=== PATIENT | male | born 1960 | race Caucasian/White ===

== ENCOUNTER 2019-07-02 13:28 | Inpatient (IN) ==
[2019-07-02] MEDS ORDERED: SODIUM CHLORIDE 0.9% 500 ML IV SCH (14:00)
[2019-07-02 14:29] LABS: Basophils # (auto) 0.03 K/uL (0-0.2); Basophils % (auto) 0.2 %; Eosinophils # (auto) 0.03 K/uL (0-0.5); Eosinophils % (auto) 0.2 %; Hematocrit (blood only) 45.2 % (42-52); Hemoglobin 16.1 g/dL (14.0-18.0); Immature Granulocytes # (auto) 0.03 K/uL (0.00-0.02); Immature Granulocytes % (auto) 0.2 %; Lymphocytes # (auto) 1.24 K/uL (1.2-3.4); Lymphocytes % (auto) 6.8 %; Mean Corpuscular Hemoglobin 31.3 pg (25-34); Mean Corpuscular Hgb Conc 35.6 g/dL (32-36); Mean Corpuscular Volume 87.9 fL (80-100); Mean Platelet Volume 10.1 fL (7.4-10.4); Monocytes # (auto) 0.58 K/uL (0.11-0.59); Monocytes % (auto) 3.2 %; Neutrophils # (auto) 16.44 K/uL (1.4-6.5); Neutrophils % (auto) 89.4 %; Platelet Count 246 K/uL (130-400); RDW Coefficient of Variation 13.3 % (11.5-14.5); RDW Standard Deviation 42.7 fL (36.4-46.3); Red Blood Count 5.14 M/uL (4.7-6.1); White Blood Count 18.35 K/uL (4.8-10.8)
[2019-07-02 14:49] LABS: Albumin Level 3.8 gm/dl (3.4-5.0); BUN Creatinine Ratio 13.6 (10-20); Calcium 9.2 mg/dl (8.5-10.1); Creatinine Clr Calc Pharmacy 82.2 ml/min; Est GFR (African American) 66.1; Est GFR (Non-African American) 57.1; Potassium 4.3 mmol/L (3.5-5.1)
[2019-07-02 15:00] LABS: Albumin Globulin Ratio 0.7 (0.9-2); Bilirubin,Total 0.3 mg/dl (0.2-1); Globulin 5.1 gm/dl (2.5-4.0); Thyroid Stimulating Hormone 5.47 uIu/ml (0.300-4.500); Total Protein 8.9 gm/dl (6.4-8.2)
[2019-07-02 15:08] LABS: Acetaminophen < 2 ug/ml (10-30)
[2019-07-02 15:11] LABS: T4 Free Thyroxine 1.24 ng/dl (0.8-1.6)
[2019-07-02] MEDS ORDERED: ONDANSETRON INJ 2 MG/ML 2 ML VIAL IV STA (15:18)
[2019-07-02] MEDS ORDERED: SODIUM BICARBONATE 8.4% 150 MEQ in DEXTROSE 5% 1,000 ML IV SCH ×2 (15:30→18:00)
--- NOTE | 2019-07-02 16:16 | History & Physical Report ---
Date of Service July 02, 2019 Assessment & Plan (1) Suicide attempt by drug ingestion: (2) Aspirin overdose: (3) Overdose of metformin: This is a 58-year-old male who has significant past medical history of T2DM, HTN, HLD, hypothyroidism, depression who presents to [facility] after intentional overdose on ASA and metformin. Pt is believed to have taken 1/2 bottle of ASA (unknown if enteric coated) and approx 10 tabs of metformin Salicylate level 77 on admission WBC 18k, H/H stable at 16.1/45.2, Plt 246 BMP: Na 139, K 4.3, Chl 116, CO2 17, bun/cr 18/1.35, lactate 0.9, LFTS WNL Poison control contacted - recommend start bicarb gtt, repeat salicylate level at 4pm admit to PCU continue IVF with bicarb gtt 150meq @ 150cc/hr - titrate as necessary vbg, salicylate level, lactic acid, prp now and Q4h until peak suicide precautions/ 1:1 monitor closely for change in condition and hemodynamic stability (4) Diabetes: Last A1C 5.8 in 05/2019 no prior records to review as pt recently established with [facility] s/p overdose of metformin monitor for hypoglycemia, lactic acidosis treat elevated bsg with novolog per protocol (5) HTN (hypertension): blood pressure elevated in ED - likely in setting of OD Continue atenolol (6) HLD (hyperlipidemia): will hold statin tonight until repeat LFT in a.m. on atorvastatin (7) Hypothyroidism: continue levothyroxine TSH mildly elevated 5.47 TSH checked in outpt setting 05/2019 4.78 will need repeat as outpt in 4-6 weeks (8) Depression: continue zoloft psych consulted given intentional OD suicide precautions (9) History of TIA (transient ischemic attack): per [facility] records on ASA and statin as outpt (10) DVT prophylaxis: SCD/TEDS avoid chemical prophylaxis in setting of ASA overdose Disposition: admit to PCU Follow up: PCP Dr. Hong upon discharge Patient was seen and examined in collaboration with Dr. Zamora, please see addendum Starting 07/03/19 pt will be under the care of Dr. Vasquez History of Present Illness Chief Complaint: Intentional overdose with ASA and metformin. Primary Care Provider: Radha Yañez MD This is a 58-year-old male who has significant past medical history of T2DM, HTN, HLD, hypothyroidism, depression who presents to [facility] after intentional overdose on ASA and metformin. Patient states last evening his kicked him out, and he felt very depressed. Because of this he took approximately half a bottle of ASA 81 mg and 10 metformin. This occurred late last evening and through pan washer hand hours, patient unsure of exact timing. He woke up early this morning with significant nausea and vomiting, and because of that stopped taking excessive pills. He overall felt very sweaty, warm and became scared. Called asking to call EMS. Patient was brought to hospital via ambulance. Currently his nausea and vomiting has subsided but he continues to feel very sweaty and warm. Prior to intentional overdose he denies any recent illness, fever, chills, weakness, dizziness, syncope, chest pain, shortness of breath, palpitations, hemoptysis, abdominal pain, change in bowel or urinary habits. Prior to arrival he admits to intent of self-harm, but currently states "I was very stupid." Up until last evening he feels his depression has been otherwise controlled on Zoloft. He has a remote history of attempting overdose approximately 30 years ago on unknown substance. Currently he denies any suicidal or homicidal ideations. Allergies Allergy/AdvReac Type Severity Reaction Status Date / Time No Known Allergies Allergy Unverified 06/23/19 18:12 Home Medications Home Medications Medication Instructions Recorded Confirmed Type aspirin 81 mg PO DAILY 07/02/19 07/02/19 History atenolol 25 mg PO DAILY 07/02/19 07/02/19 History atorvastatin 40 mg PO HS 07/02/19 07/02/19 History levothyroxine 150 mcg PO DAILY 07/02/19 07/02/19 History metformin 500 mg PO BIDM 07/02/19 07/02/19 History sertraline 50 mg PO DAILY 07/02/19 07/02/19 History Past Med/Surg History Medical History History of TIA (transient ischemic attack) Depression Hypothyroidism HLD (hyperlipidemia) HTN (hypertension) Diabetes Surgical History History of hernia surgery Hx of eye surgery Family History Mother Dementia CHF (congestive heart failure) Father Diabetes Social History Preferred Language: Yoruba Communication Ability: Effective Communication Ability Comment: very hard of hearing Hearing Ability: Hard of Hearing Loading Checker Required: No Beliefs That Will Affect Care: None marital status: Current Living Situation: Spouse current occupational status: disabled Other Information That Helps Us Care for You: No Feels Safe at Home: Yes Safety Concerns: Feels Safe At This Time Smoking Status: Current every day smoker Tobacco Type: smokeless tobacco ; Hx Alcohol Use: No Hx Substance Use: Yes substance use type: other Substance Use Type Other:: overdose Last Used Substance: Just Prior to Arrival Review of Systems Review of Systems: All systems reviewed & are unremarkable except as noted in HPI & below Physical Exam Physical Exam: Constitutional: WD/WN, morbidly obese male, vey hard of hearing, diaphoretic, unkempt hygeine, vitals as above, NAD, sitting up in bed, pleasant, conversing easily Head: Normocephalic, Atraumatic Eyes: PERRL, conjunctivae normal, anicteric sclerae ENMT: external ear and nose normal, oropharynx with dry mucous membranes Neck: trachea midline, no thyromegaly normal visual inspection Respiratory: +tachypnea, lungs clear to auscultation, no wheeze, rales, rhonchi. Normal insp/exp effort, no accessory muscle use Cardiovascular: RRR, no murmur, no edema Vessels: no JVD or carotid bruit Chest: normal inspection of chest Abdomen: distended due to obesity, normal bowel sounds, soft, nontender, no hepatosplenomegaly Musculoskeletal: no cyanosis or clubbing, extremities motor strength 5/5 Skin: no rashes, warm and dry normal turgor, b/l pretibial surfaces with numerous abrasions, scratches but does not appear to be infected Neurologic: PERRL, EOMI, accommodation nl, no face palsy, no dysarthria CN's II-XI intact bilaterally and moves all extremities Psychiatric: A+Ox3, euthymic affect Lymphatic: no cervical or axillary lymphadenopathy : deferred Results & Data Vital Signs (Past 12 Hours) Vital Signs Temp Pulse Resp BP Pulse Ox 07/02/19 15:01 101 H 24 174/89 H 98 07/02/19 14:32 97 H 25 H 178/86 H 07/02/19 14:01 99 H 23 145/90 H 97 07/02/19 13:30 36.5 C 78 18 159/95 H 96 07/02/19 13:24 98 Laboratory Results Short CBC 07/02/19 Range/Units 14:12 WBC 18.35 H (4.8-10.8) K/uL Hgb 16.1 (14.0-18.0) g/dL Hct 45.2 (42-52) % Plt Count 246 (130-400) K/uL BMP 07/02/19 14:12 Sodium 139 Potassium 4.3 Chloride 116 H Carbon Dioxide 17 L BUN 18 Creatinine 1.35 Glucose 121 H Calcium 9.2 Cardiac Enzymes 07/02/19 Range/Units 14:12 Total Creatine Kinase 151 (39-308) U/L Liver Function 07/02/19 Range/Units 14:12 Total Bilirubin 0.3 (0.2-1) mg/dl AST 23 (15-37) U/L ALT 35 (12-78) U/L Alkaline Phosphatase 88 (45-117) U/L Albumin 3.8 (3.4-5.0) gm/dl Medications Administered Sodium Bicarbonate 150 meq/ (Dextrose) 1,150 mls @ 250 mls/hr IV .Q4H36M CAITY Stop: 07/02/19 20:05 Last Admin: 07/02/19 15:48 Dose: 250 mls/hr Documented by: [id number] Discontinued Medications Sodium Chloride (Nss) 500 mls @ 999 mls/hr IV .Q31M CAITY Stop: 07/02/19 14:30 Last Infusion: 07/02/19 14:55 Dose: 0 mls/hr Documented by: [id number] Admin: 07/02/19 14:19 Dose: 999 mls/hr Documented by: [id number] Ondansetron HCl (Zofran) 4 mg IV NOW STA Stop: 07/02/19 15:19 Last Admin: 07/02/19 15:48 Dose: 4 mg Documented by: [id number] ECG Rate (beats per minute): 94 Rhythm: normal sinus Code Status & VTE Plan Code Status Full Code VTE Prophylaxis Plan VTE Prophylaxis will be ordered: Yes Supervising Physician Co-Signing Physician Notes I have seen and examined the patient and have discussed the case with the provider above. I agree with the assessment and plan as stated with the following exceptions. 58 yo intentional overdose in a suicide attempt reports taking half of a "big bottle of aspirin" overnight and into this morning after his kicked him out after an argument. He reports being on disability and not able to afford any of his medications consistently. He denies taking Synthroid for a "very long time." He denies taking sertraline at all, and thinks that this is the only agent he has been treated with in the last two years since starting treatment for depression, however, he is a very poor historian. It appears unlikely that he takes any medications at all. He feels "stupid" for what he did and exhibits remorse. He appears happy when talking about his baby cat that he has at home. He says he has a neutral friend he can stay with in the meantime until things calm down with his . Regarding his acid base issues related to salicylate toxicity, he has a respiratory alkalosis 2/2 tachypnea and a metabolic acidosis with a normal anion gap and normal lactate. Nausea and vomiting has subsided. Physical exam reveals tachycardia with a regular rate and rhythm, lungs clear to auscultation bilaterally, he has multiple small cat scratches on his abdomen, skin is warm and dry. His salicylate level has risen over the past 6 hours since admission. Poison control is guiding therapy to include bicarb drip with 3 amps HC03 and the addition of KCl30 Meq. Frequent lab draws are requested including q2hr salicylates, q4h blood gases and another lactate to ensure this is not rising. I have also added q4h BMP. As a result of this need, the rising salicylate level, and his persistent hemodynamic instability we will transfer him to the ICU. I have discussed the case with the [facility] who does not feel urgent dialysis is needed at this time. It is noted that emergent dialysis is not currently available at this facility by all providers. DO Noah (1) Aspirin overdose Encounter type: initial encounter Injury intent: intentional self-harm Qualified Code(s): T39.012A - Poisoning by aspirin, intentional self-harm, initial encounter (2) HTN (hypertension) Hypertension type: unspecified Qualified Code(s): I10 - Essential (primary) hypertension
[2019-07-02 16:47] LABS: Oxygen Saturation VBG 88.6 %; pH VBG 7.49 (7.36-7.41)
[2019-07-02 16:59] LABS: Calcium 8.8 mg/dl (8.5-10.1); Creatinine Clr Calc Pharmacy 86.7 ml/min; Est GFR (African American) 70.5; Est GFR (Non-African American) 60.9; Potassium 4.1 mmol/L (3.5-5.1)
[2019-07-02] MEDS ORDERED: POLYETHYLENE (MIRALAX) 17 GM PACK PO PRN (17:17)
[2019-07-02] MEDS ORDERED: GLUCAGON FOR INJ 1 MG VIAL SQ PRN (17:17)
[2019-07-02] MEDS ORDERED: ONDANSETRON INJ 2 MG/ML 2 ML VIAL IV PRN (17:17)
[2019-07-02] MEDS ORDERED: GLUCOSE 10 TABS/TUBE PO PRN (17:17)
[2019-07-02] MEDS ORDERED: MAGNESIUM HYDROXIDE SUSP 30 ML UDC PO PRN (17:17)
[2019-07-02] MEDS ORDERED: DEXTROSE 50% 50 ML SYRINGE IV PRN (17:17)
[2019-07-02] MEDS ORDERED: ALUMINUM/MAGNESIUM SUSP 30 ML UDC PO PRN (17:17)
[2019-07-02] MEDS ORDERED: CARBOHYDRATES FOR HYPOGLYCEMIA PO PRN (17:17)
[2019-07-02] MEDS ORDERED: GLUCOSE 40% GEL 15 GM TUBE PO PRN (17:17)
[2019-07-02] MEDS ORDERED: ACETAMINOPHEN 325 MG TAB PO PRN (17:17)
[2019-07-02] MEDS ORDERED: NICOTINE 14 MG/24 HR PATCH TD SCH (17:45)
[2019-07-02 19:12] LABS: Base Excess ABG -2.6 mEq/L (-9-1.8); HCO3 ABG 18 mmol/L (19-24); Oxygen Saturation ABG 97.9 % (90-95); PCO2 ABG 22 mmHg (35-46); PO2 ABG 92 mm/Hg (80-95)
[2019-07-02 19:17] LABS: Allen Test Pos (Pos); pH ABG 7.53 (7.35-7.45)
--- NOTE | 2019-07-02 20:36 | Emergency Department Note ---
Entered by Yulsia Newton acting as a scribe for Doc Reyes M.D. History of Present Illness General Chief complaint: Overdose (Intentional) Stated complaint: drug overdose Source: patient History of Present Illness Onset (ago): day(s) (this morning) Location: abdomen Pain Consistency: + other (episode) Quality: + other (overdose) Associated symptoms: + denies other symptoms (recent falls), + nausea/vomiting, + shortness of breath and + other (abdominal pain, SI, chronic ear ringing) The patient is a 58 year old male who presents to the Emergency Room with complaints of an episode of an overdose occurring this morning. The patient states that last night him and his of 15 years got into an argument. He reports that she asked him to leave the house and he did so early this morning. He states that he just couldnt handle it so he tried to overdose on his medications. He states that he took 10 tablets of 500 mg Metformin and about half a large bottle of Aspirin. He reports that he believes that there were 100 Aspirin in the bottle and he took roughly 50. He notes that he started taking the medications around 5 AM, 9 hours ago. He states that since then he started having a burning abdominal pain, nausea, and vomiting. He reports that he then called 911. He notes that he was trying to kill himself this morning. He notes that he tried once before 30 years ago. The patient complains of chronic ringing in his ears and shortness of breath. The patient denies recent falls, use of drugs, and drinking alcohol. Home Medications Home Medications Medication Instructions Recorded Confirmed Type aspirin 81 mg PO DAILY 07/02/19 07/02/19 History atenolol 25 mg PO DAILY 07/02/19 07/02/19 History atorvastatin 40 mg PO HS 07/02/19 07/02/19 History levothyroxine 150 mcg PO DAILY 07/02/19 07/02/19 History metformin 500 mg PO BIDM 07/02/19 07/02/19 History sertraline 50 mg PO DAILY 07/02/19 07/02/19 History Allergies Allergy/AdvReac Type Severity Reaction Status Date / Time No Known Allergies Allergy Unverified 06/23/19 18:12 Past Med/Surg History Medical History History of TIA (transient ischemic attack) Depression Hypothyroidism HLD (hyperlipidemia) HTN (hypertension) Diabetes Surgical History History of hernia surgery Hx of eye surgery Family History Mother Dementia CHF (congestive heart failure) Father Diabetes Social History Preferred Language: Tristanian Communication Ability: Effective Communication Ability Comment: very hard of hearing Hearing Ability: Hard of Hearing Cordwainer Required: No Beliefs That Will Affect Care: None marital status: Current Living Situation: Spouse current occupational status: disabled Other Information That Helps Us Care for You: No Feels Safe at Home: Yes Safety Concerns: Feels Safe At This Time Smoking Status: Current every day smoker Tobacco Type: smokeless tobacco ; Hx Alcohol Use: No Hx Substance Use: Yes substance use type: other Substance Use Type Other:: overdose Last Used Substance: Just Prior to Arrival Review of Systems See HPI for pertinent positives & negatives. and A total of 10 systems reviewed and were otherwise negative Physical Exam Vital Signs Vital Signs - 24 hr 07/02/19 13:24 07/02/19 13:30 07/02/19 14:01 Temperature 36.5 C Temperature Source Oral Sepsis Recent Fever Within 48 Hours No Sepsis New/Unexplained Change in Mental Status No Sepsis Action Taken by Nursing No Action Required Pulse Rate 78 99 H Pulse Rate from SpO2 Sensor 98 H Respiratory Rate 18 23 Respiratory Effort / Characteristics Non-Labored Spontaneous Respiratory Depth Normal Respiratory Pattern Regular Blood Pressure 159/95 H 145/90 H Blood Pressure Mean 116 108 Pulse Oximetry 98 96 97 Oxygen Delivery Method Room Air Room Air 07/02/19 14:32 07/02/19 15:01 Temperature Temperature Source Sepsis Recent Fever Within 48 Hours Sepsis New/Unexplained Change in Mental Status Sepsis Action Taken by Nursing Pulse Rate 97 H 101 H Pulse Rate from SpO2 Sensor 100 H Respiratory Rate 25 H 24 Respiratory Effort / Characteristics Respiratory Depth Respiratory Pattern Blood Pressure 178/86 H 174/89 H Blood Pressure Mean 116 117 Pulse Oximetry 98 Oxygen Delivery Method GENERAL: Tearful. Awake, alert, fatigue appearing HENT: Normocephalic, atraumatic. EYES: Normal conjunctiva. Sclera non-icteric. NECK: Supple. No nuchal rigidity. RESPIRATORY: Tachypneic. Clear to auscultation. No wheezes. CARDIAC: Normal rate. Normal rhythm. Extremities warm and well perfused. GI: Soft, non-distended. No tenderness to palpation. No rebound or guarding. No masses. RECTAL: Deferred. MUSCULOSKELETAL: Atraumatic. Chest examination reveals no tenderness. LOWER EXTREMITIES: Calves are equal size bilaterally and non-tender. No edema NEURO: Normal sensorium. No sensory or motor deficits noted. No facial droop. SKIN: Warm and dry. No rash or jaundice noted. PSYCH: Endorse thoughts of SI. Denies HI. Course 1400: Past medical records reviewed. The patient was evaluated in room A3. A complete history and physical exam was performed. 1511: I discussed the patient's case with Poison Control. They recommended starting a Bicarb drip and repeating his labs in 2 hours. 1516: I reevaluated the patient and updated him on his test results. I discussed the treatment plan with him. He verbally agrees and understands. 1519: I discussed the patient's case with ELSY Cotto [facility]. She will evaluate the patient for further management under Dr. Zamora's service. 1522: The psych case folder, Deonte, is going to write a petition for the patient given his suicidal thoughts. Administered Medications Al Hydrox/Mg Hydrox/Simethicone (Maalox) 15 ml PO Q4H PRN PRN Reason: Dyspepsia Stop: 08/01/19 17:16 Last Admin: 07/02/19 19:41 Dose: 15 ml Documented by: [id number] Discontinued Medications Sodium Chloride (Nss) 500 mls @ 999 mls/hr IV .Q31M CAITY Stop: 07/02/19 14:30 Last Infusion: 07/02/19 14:55 Dose: 0 mls/hr Documented by: [id number] Admin: 07/02/19 14:19 Dose: 999 mls/hr Documented by: [id number] Sodium Bicarbonate 150 meq/ (Dextrose) 1,150 mls @ 250 mls/hr IV .Q4H36M CAITY Stop: 07/02/19 20:05 Last Admin: 07/02/19 15:48 Dose: 250 mls/hr Documented by: [id number] Sodium Bicarbonate 150 meq/ (Dextrose) 1,150 mls @ 150 mls/hr IV .Q7H40M [facility] Stop: 08/01/19 17:59 Last Admin: 07/02/19 19:42 Dose: 150 mls/hr Documented by: [id number] Ondansetron HCl (Zofran) 4 mg IV NOW STA Stop: 07/02/19 15:19 Last Admin: 07/02/19 15:48 Dose: 4 mg Documented by: [id number] Medical Decision Making Differential Diagnosis Differential diagnosis: Etiologies such as toxicological process, infection, hypoglycemia, electrolyte abnormalities, cardiac sources, intracerebral event, neurologic process, as well as others were entertained. Medical Records Attestation: I reviewed the patient's medical records. Home Medications Current Medication List: was personally reviewed by me Laboratory Data Attestation: I reviewed the patient's lab results. Result diagrams: 07/02/19 14:12 07/02/19 16:34 Lab Results 07/02/19 07/02/19 07/02/19 Range/Units 14:12 14:12 14:12 WBC 18.35 H (4.8-10.8) K/uL RBC 5.14 (4.7-6.1) M/uL Hgb 16.1 (14.0-18.0) g/dL Hct 45.2 (42-52) % MCV 87.9 (80-100) fL MCH 31.3 (25-34) pg MCHC 35.6 (32-36) g/dL RDW Std Deviation 42.7 (36.4-46.3) fL RDW Coeff of Enedelia 13.3 (11.5-14.5) % Plt Count 246 (130-400) K/uL MPV 10.1 (7.4-10.4) fL Immature Gran % (Auto) 0.2 % Neut % (Auto) 89.4 % Lymph % (Auto) 6.8 % Fajardo % (Auto) 3.2 % Eos % (Auto) 0.2 % Baso % (Auto) 0.2 % Immature Gran # (Auto) 0.03 H (0.00-0.02) K/uL Neut # (Auto) 16.44 H (1.4-6.5) K/uL Lymph # (Auto) 1.24 (1.2-3.4) K/uL Fajardo # (Auto) 0.58 (0.11-0.59) K/uL Eos # (Auto) 0.03 (0-0.5) K/uL Baso # (Auto) 0.03 (0-0.2) K/uL Sodium (136-145) mmol/L Potassium (3.5-5.1) mmol/L Chloride (98-107) mmol/L Carbon Dioxide (21-32) mmol/L Anion Gap (3-11) BUN (7-18) mg/dl Creatinine (0.6-1.4) mg/dl Est Cr Clr Drug Dosing ml/min Est GFR ( Amer) Est GFR (Non-Af Amer) BUN/Creatinine Ratio (10-20) Glucose (70-99) mg/dl Lactate 0.9 (0.4-2.0) mmol/L Calcium (8.5-10.1) mg/dl Total Bilirubin (0.2-1) mg/dl AST (15-37) U/L ALT (12-78) U/L Alkaline Phosphatase (45-117) U/L Total Creatine Kinase 151 (39-308) U/L Total Protein (6.4-8.2) gm/dl Albumin (3.4-5.0) gm/dl Globulin (2.5-4.0) gm/dl Albumin/Globulin Ratio (0.9-2) Lipase (73-393) U/L TSH (0.300-4.500) uIu/ml Free T4 (0.8-1.6) ng/dl Salicylates (2.8-20) mg/dl Acetaminophen (10-30) ug/ml Ethyl Alcohol mg/dL (0-3) mg/dl Hepatitis C Ab Screen (Neg) 07/02/19 07/02/19 07/02/19 Range/Units 14:12 14:12 14:12 WBC (4.8-10.8) K/uL RBC (4.7-6.1) M/uL Hgb (14.0-18.0) g/dL Hct (42-52) % MCV (80-100) fL MCH (25-34) pg MCHC (32-36) g/dL RDW Std Deviation (36.4-46.3) fL RDW Coeff of Enedelia (11.5-14.5) % Plt Count (130-400) K/uL MPV (7.4-10.4) fL Immature Gran % (Auto) % Neut % (Auto) % Lymph % (Auto) % Fajardo % (Auto) % Eos % (Auto) % Baso % (Auto) % Immature Gran # (Auto) (0.00-0.02) K/uL Neut # (Auto) (1.4-6.5) K/uL Lymph # (Auto) (1.2-3.4) K/uL Fajardo # (Auto) (0.11-0.59) K/uL Eos # (Auto) (0-0.5) K/uL Baso # (Auto) (0-0.2) K/uL Sodium 139 (136-145) mmol/L Potassium 4.3 (3.5-5.1) mmol/L Chloride 116 H (98-107) mmol/L Carbon Dioxide 17 L (21-32) mmol/L Anion Gap 6.0 (3-11) BUN 18 (7-18) mg/dl Creatinine 1.35 (0.6-1.4) mg/dl Est Cr Clr Drug Dosing 82.2 ml/min Est GFR ( Amer) 66.1 Est GFR (Non-Af Amer) 57.1 BUN/Creatinine Ratio 13.6 (10-20) Glucose 121 H (70-99) mg/dl Lactate (0.4-2.0) mmol/L Calcium 9.2 (8.5-10.1) mg/dl Total Bilirubin 0.3 (0.2-1) mg/dl AST 23 (15-37) U/L ALT 35 (12-78) U/L Alkaline Phosphatase 88 (45-117) U/L Total Creatine Kinase (39-308) U/L Total Protein 8.9 H (6.4-8.2) gm/dl Albumin 3.8 (3.4-5.0) gm/dl Globulin 5.1 H (2.5-4.0) gm/dl Albumin/Globulin Ratio 0.7 L (0.9-2) Lipase (73-393) U/L TSH 5.470 H (0.300-4.500) uIu/ml Free T4 1.24 (0.8-1.6) ng/dl Salicylates 77.0 H* (2.8-20) mg/dl Acetaminophen < 2 L (10-30) ug/ml Ethyl Alcohol mg/dL < 3.0 (0-3) mg/dl Hepatitis C Ab Screen (Neg) 07/02/19 07/02/19 Range/Units 14:12 14:12 WBC (4.8-10.8) K/uL RBC (4.7-6.1) M/uL Hgb (14.0-18.0) g/dL Hct (42-52) % MCV (80-100) fL MCH (25-34) pg MCHC (32-36) g/dL RDW Std Deviation (36.4-46.3) fL RDW Coeff of Enedelia (11.5-14.5) % Plt Count (130-400) K/uL MPV (7.4-10.4) fL Immature Gran % (Auto) % Neut % (Auto) % Lymph % (Auto) % Fajardo % (Auto) % Eos % (Auto) % Baso % (Auto) % Immature Gran # (Auto) (0.00-0.02) K/uL Neut # (Auto) (1.4-6.5) K/uL Lymph # (Auto) (1.2-3.4) K/uL Fajardo # (Auto) (0.11-0.59) K/uL Eos # (Auto) (0-0.5) K/uL Baso # (Auto) (0-0.2) K/uL Sodium (136-145) mmol/L Potassium (3.5-5.1) mmol/L Chloride (98-107) mmol/L Carbon Dioxide (21-32) mmol/L Anion Gap (3-11) BUN (7-18) mg/dl Creatinine (0.6-1.4) mg/dl Est Cr Clr Drug Dosing ml/min Est GFR ( Amer) Est GFR (Non-Af Amer) BUN/Creatinine Ratio (10-20) Glucose (70-99) mg/dl Lactate (0.4-2.0) mmol/L Calcium (8.5-10.1) mg/dl Total Bilirubin (0.2-1) mg/dl AST (15-37) U/L ALT (12-78) U/L Alkaline Phosphatase (45-117) U/L Total Creatine Kinase (39-308) U/L Total Protein (6.4-8.2) gm/dl Albumin (3.4-5.0) gm/dl Globulin (2.5-4.0) gm/dl Albumin/Globulin Ratio (0.9-2) Lipase 107 (73-393) U/L TSH (0.300-4.500) uIu/ml Free T4 (0.8-1.6) ng/dl Salicylates (2.8-20) mg/dl Acetaminophen (10-30) ug/ml Ethyl Alcohol mg/dL (0-3) mg/dl Hepatitis C Ab Screen Neg (Neg) ECG Data Attestation: I personally reviewed and interpreted this ECG as follows: Indication: toxicologic Rate (beats per minute): 94 Rhythm: normal sinus Findings: + other (normal intervals); no PVC, no ST depression, no ST elevation and no acute ischemic change Blood Pressure Blood Pressure Findings: Elevated blood pressure Blood Pressure Disposition: further management by hospitalist RADHA Castelan Patient is a 58-year-old gentleman with a history of hypertension and diabetes presenting today after going to his fight with his last night and trying to overdose this morning. States after 5 AM this morning he took half a bottle of aspirin and 10 tablets of metformin. Unable to give me exact timeline. Patient somewhat tachypneic and complaining of chronic tinnitus upon valuation in the room. Complains of nausea and upper abdominal discomfort and states he has vomited. No clonus. No fevers. No other sick external signs of significant trauma. Not peritoneal. Toxicology labs were sent and EKG obtained. No evidence of significant electrolyte abnormalities. Leukocytosis of 18.3 as noted. No evidence of interval abnormalities on EKG. no lactate elevation. No evidence of liver dysfunction Tylenol or alcohol intoxication. Aspirin level of 77. Fits with his tachypnea and overdose profile. Started on bicarb drip. Discussed with poison control. Will admit medically for aspirin overdose. Will need psychiatric evaluation as well. Discussed with the [facility] hospitalist. Impression & Plan Aspirin overdose, Overdose of metformin, Suicidal thoughts, Nausea Discharge Plan Visit Data *Final* Discharge Date/Time: 07/02/19 16:45 Chief Complaint: Overdose (Intentional) Stated Complaint: drug overdose ED Provider: Doc Reyes Discharge Problem: Aspirin overdose, Overdose of metformin, Suicidal thoughts, Nausea Patient Disposition: Admitted As Inpatient Discharge Instructions Interventions: ED Discharge Assessment Last Done: 07/02/19 16:45 Discharge Problem: Aspirin overdose Qualifiers: Encounter type: initial encounter Injury intent: intentional self-harm Qualified Code(s): T39.012A - Poisoning by aspirin, intentional self-harm, initial encounter The scribe's documentation has been prepared under my direction and personally reviewed by me in its entirety. I confirm that the note above accurately reflects all work, treatment, procedures, and medical decision making performed by me.
[2019-07-02] MEDS: SODIUM BICARBONATE 8.4% 150 MEQ, POTASSIUM CHLORIDE 30 MEQ in DEXTROSE 5% 1,000 ML IV SCH (21:08)
[2019-07-02 21:12] LABS: Appearance Urine Clear (Clear); Bacteria Urine Automated Negative (Negative); Bilirubin Urine Negative (Negative); Blood Urine Negative (Negative); Color Urine Yellow; Epithelial Cell Urine Auto >30 /lpf (0-5); Glucose Urine UA Trace (Negative); Ketones Urine 2+ (Negative); Leukocyte Esterase Urine Negative (Negative); Nitrite Urine Negative (Negative); Protein Urine 1+ (Negative); RBC Urine Automated 0-4 /hpf (0-4); Specific Gravity Urine 1.022 (1.000-1.030); Urobilinogen Urine Negative (Negative)
[2019-07-02 21:20] LABS: Amphetamines+Metham, Urine Neg (Neg); Barbiturates, Urine Neg (Neg); Benzodiazepine, Urine Neg (Neg); Cocaine, Urine Neg (Neg); MDMA (Ecstacy), Urine Neg (Neg); Methadone, Urine Neg (Neg); Opiate, Urine Neg (Neg); Phencyclidine, Urine Neg (Neg)
--- NOTE | 2019-07-02 21:36 | Critical Care Consultation ---
Date of Consultation July 02, 2019 Assessment & Plan (1) Suicide attempt by drug ingestion: Reason Critically Ill: 58-year-old male admitted to the ICU following intentional OD with ASA and metformin Neuro - Suicide attempts with overdosepatient reported taking a half bottle of ASA and 10 tablets of metformin earlier today and attempt to commit suicide, currently denies suicidal ideation but is confused -We will need psych consult once metabolically stable, continue one-on-one sitter, suicidal precautions -Toxicology following and appreciate recommendations -We will continue bicarb drip with potassium additive, toxicology recommended allowing pH to reach as high as 7.60 -Q4H EKGs for QTc analysis -Q2H salicylates and VBG -Lactic acidosis so far negative, continue to monitor -Frequent BMPs, closely monitoring bicarb level -Goal urine output 1 to 2 mL/kg/h, given LR bolus, monitor urine pH routine -Nephrology did not recommend dialysis at this time, understand the patient is low threshold and closely monitoring with labs -Continuous monitoring on telemetry -Frequent neuro exams Cardiac - HTNresume home meds when appropriate Respiratory - Patient maintaining sats on room air, no issues at this time GI - N.p.o., advance diet when appropriate RENAL/LYTES - Monitor routine BMPs, replete electrolytes as necessary Continue D5W HCO3 drip with 30 mEq K - Trevino, strict I's and O's for goal urine output 1 to 2 mL/kg/h ENDO - DM type IIhemoglobin A1c 5.7, no metformin given overdose -Currently euglycemic, ICU hyperglycemic protocol Hypothyroidismcontinue Synthroid HEME - H&H stable, monitor routine CBCs ID - No indication for infectious process at this time LINES/IV ACCESS - Peripheral IVs DVT PROPHYLAXIS - SCDs I have personally spent 60 minutes of critical care time in the direct management of this patient. This is a life/limb threatening event. This includes time spent evaluating patient, direct bedside care, chart review, placing orders, interpretation of diagnostic studies, discussion with consultants, patient, and family members, as well as other required patient management activities. This time is exclusive of all separately billable procedures, and teaching time and separate from and in addition to any other critical care service time. Thank you for allowing us to participate in the care of this patient. Please refer to my attending physician's documentation for any further recommendations. (2) Depression: (3) Hypothyroidism: (4) HLD (hyperlipidemia): (5) Aspirin overdose: (6) Overdose of metformin: (7) HTN (hypertension): (8) Diabetes: History of Present Illness Attending Physician: Naya Zamora DO History of Present Illness Patient is a 58-year-old male with past medical history of DM type II, HTN, HLD, hypothyroidism, depression who presented to the emergency department with intentional overdose with approximately half bottle ASA and 10 tabs metformin. Patient was initially admitted to PCU, initial salicylate level 77 had increased to 83. The patient also become more confused and was transferred to ICU for closer monitoring and management. Per my conversation with the hospitalist, nephrology was notified and at this point and did not recommend dialysis. Per toxicology recommendations the patient had been placed on bicarb drip and was being monitored with frequent VBGs, lactates, BMPs, salicylate levels, EKGs. On arrival to the ICU the patient was alerts with confusion about place and time. He admitted to attempting to commit suicide but did not remember how and denied current suicidal ideations. He currently has a one-on-one sitter at bedside. He denies dizziness or lightheadedness, headache, shortness of breath, palpitations, chest pain, abdominal pain, nausea or vomiting, or diarrhea. Patient to remain in ICU for now for current management, will likely be low threshold for need for emergent dialysis if patient's status deteriorates. Allergies Allergy/AdvReac Type Severity Reaction Status Date / Time No Known Allergies Allergy Unverified 06/23/19 18:12 Home Medications Home Medications Medication Instructions Recorded Confirmed Type aspirin 81 mg PO DAILY 07/02/19 07/02/19 History atenolol 25 mg PO DAILY 07/02/19 07/02/19 History atorvastatin 40 mg PO HS 07/02/19 07/02/19 History levothyroxine 150 mcg PO DAILY 07/02/19 07/02/19 History metformin 500 mg PO BIDM 07/02/19 07/02/19 History sertraline 50 mg PO DAILY 07/02/19 07/02/19 History Patient History Medical History History of TIA (transient ischemic attack) Depression Hypothyroidism HLD (hyperlipidemia) HTN (hypertension) Diabetes Surgical History History of hernia surgery Hx of eye surgery Family History Mother Dementia CHF (congestive heart failure) Father Diabetes Social History Preferred Language: Hungarian Communication Ability: Effective Communication Ability Comment: very hard of hearing Hearing Ability: 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 Beliefs That Will Affect Care: None marital status: Current Living Situation: Spouse current occupational status: disabled Other Information That Helps Us Care for You: No Feels Safe at Home: Yes Safety Concerns: Feels Safe At This Time Smoking Status: Current every day smoker Tobacco Type: smokeless tobacco ; Hx Alcohol Use: No Hx Substance Use: Yes substance use type: other Substance Use Type Other:: overdose Last Used Substance: Just Prior to Arrival Review of Systems Review of Systems: All systems reviewed & are unremarkable except as noted in HPI & below Physical Exam Constitutional: cooperative and comfortable Eyes: PERRL ENMT: external ear and nose normal, oropharynx normal Neck: trachea midline, no thyromegaly Respiratory: normal respiratory effort, lungs clear to auscultation + tachypneic Cardiovascular: RRR, no murmur, no edema Heart Sounds: normal S1 and normal S2 Vessels: no JVD Extremities: normal capillary refill Gastrointestinal (Abdomen): normal bowel sounds, soft, nontender, no hepatosplenomegaly Musculoskeletal: no cyanosis or clubbing, extremities motor strength 5/5 Skin: no rashes, warm and dry Neurologic: PERRL, EOMI, accommodation nl, no face palsy, no dysarthria Psychiatric: Orientation: alert, oriented to person and cooperative Eye Contact: good eye contact Speech: normal rate/rhythm/volume of speech Affect: euthymic affect Cognition: + recent memory not intact confused Results & Data Vital Signs (Past 12 Hours) Vital Signs Temp Pulse Pulse Resp BP BP Pulse Ox 07/02/19 21:15 118 H 17 99 07/02/19 21:10 120 H 25 H 97 07/02/19 21:06 36.6 C 121 H 25 H 141/80 H 97 07/02/19 21:05 121 H 18 97 07/02/19 21:03 120 H 25 H 07/02/19 20:50 120 H 07/02/19 19:34 36.3 C L 110 H 28 H 172/90 H 98 07/02/19 17:17 36.5 C 110 H 26 H 98 07/02/19 16:45 74 18 164/96 H 99 07/02/19 16:02 111 H 23 164/96 H 96 07/02/19 16:00 110 H 23 130/89 96 07/02/19 15:01 101 H 24 174/89 H 98 07/02/19 14:32 97 H 25 H 178/86 H 07/02/19 14:01 99 H 23 145/90 H 97 07/02/19 13:30 36.5 C 78 18 159/95 H 96 07/02/19 13:24 98 Coding Level of Care Code Critical Care 1st 30-74 mins Diagnoses Suicide attempt by drug ingestion T50.902A Depression F32.9 Hypothyroidism E03.9 HLD (hyperlipidemia) E78.5 Aspirin overdose T39.012A Encounter type: initial encounter Injury intent: intentional self-harm Overdose of metformin T38.3X1A HTN (hypertension) I10 Diabetes E11.9 Time Spent (min) 60 (1) Aspirin overdose Encounter type: initial encounter Injury intent: intentional self-harm Qualified Code(s): T39.012A - Poisoning by aspirin, intentional self-harm, initial encounter
[2019-07-02 22:08] LABS: Base Excess VBG -1.7 mEq/L; Oxygen Saturation VBG 95.2 %; pH VBG 7.54 (7.36-7.41)
[2019-07-02] MEDS ORDERED: ICU PROTOCOL FOR HYPERGLYCEMIA PRN (22:12)
[2019-07-02 22:22] LABS: BUN Creatinine Ratio 15.3 (10-20); Calcium 8.3 mg/dl (8.5-10.1); Est GFR (Non-African American) 56.1; Potassium 3.6 mmol/L (3.5-5.1)
[2019-07-03] MEDS ORDERED: LACTATED RINGER'S 1,000 ML IV ONE ×2 (00:06→01:43)
[2019-07-03 00:11] LABS: Base Excess VBG 2.5 mEq/L; Oxygen Saturation VBG 94.4 %; pH VBG 7.6 (7.36-7.41)
[2019-07-03 01:20] LABS: Base Excess VBG 4.1 mEq/L; HCO3 VBG 26 mmol/L; PCO2 VBG 31 mmHg (38-50); PO2 VBG 25 mmHg; pH VBG 7.54 (7.36-7.41)
[2019-07-03 01:25] LABS: Oxygen Saturation VBG < 60.0 %
[2019-07-03 01:30] LABS: BUN Creatinine Ratio 14.3 (10-20); Creatinine Clr Calc Pharmacy 78.2 ml/min; Est GFR (African American) 62.2; Est GFR (Non-African American) 53.7; Potassium 3.5 mmol/L (3.5-5.1)
[2019-07-03] MEDS: LACTATED RINGER'S 1,000 ML IV SCH ×2 (03:20→11:09)
[2019-07-03] MEDS: SODIUM BICARBONATE 8.4% 150 MEQ, POTASSIUM CHLORIDE 30 MEQ in DEXTROSE 5% 1,000 ML IV SCH ×2 (03:21→12:08)
[2019-07-03 03:27] LABS: Base Excess VBG 3.8 mEq/L; pH VBG 7.56 (7.36-7.41)
[2019-07-03 05:33] LABS: Basophils # (auto) 0.02 K/uL (0-0.2); Basophils % (auto) 0.1 %; Eosinophils # (auto) 0.02 K/uL (0-0.5); Eosinophils % (auto) 0.1 %; Hematocrit (blood only) 39.3 % (42-52); Hemoglobin 13.5 g/dL (14.0-18.0); Immature Granulocytes # (auto) 0.04 K/uL (0.00-0.02); Immature Granulocytes % (auto) 0.3 %; Lymphocytes # (auto) 2.06 K/uL (1.2-3.4); Lymphocytes % (auto) 13.3 %; Mean Corpuscular Hemoglobin 30.5 pg (25-34); Mean Corpuscular Hgb Conc 34.4 g/dL (32-36); Mean Corpuscular Volume 88.9 fL (80-100); Mean Platelet Volume 10.4 fL (7.4-10.4); Monocytes # (auto) 1.15 K/uL (0.11-0.59); Monocytes % (auto) 7.4 %; Neutrophils # (auto) 12.16 K/uL (1.4-6.5); Neutrophils % (auto) 78.8 %; Platelet Count 232 K/uL (130-400); RDW Coefficient of Variation 13.9 % (11.5-14.5); RDW Standard Deviation 45.2 fL (36.4-46.3); Red Blood Count 4.42 M/uL (4.7-6.1); White Blood Count 15.45 K/uL (4.8-10.8)
[2019-07-03 05:40] LABS: Base Excess VBG 1.5 mEq/L; Oxygen Saturation VBG 89.9 %; pH VBG 7.53 (7.36-7.41)
[2019-07-03 06:06] LABS: Albumin Level 2.9 gm/dl (3.4-5.0); BUN Creatinine Ratio 14.6 (10-20); Calcium 7.8 mg/dl (8.5-10.1); Est GFR (Non-African American) 56.1; Magnesium 2.2 mg/dl (1.8-2.4); Potassium 3.3 mmol/L (3.5-5.1)
[2019-07-03] MEDS ORDERED: POTASSIUM CHLORIDE 20 MEQ/15 ML UDC PO STA (06:12)
[2019-07-03 06:18] LABS: Albumin Globulin Ratio 0.8 (0.9-2); Bilirubin,Total 0.4 mg/dl (0.2-1); Globulin 3.7 gm/dl (2.5-4.0); Total Protein 6.6 gm/dl (6.4-8.2)
[2019-07-03] MEDS ORDERED: LEVOTHYROXINE SODIUM 150 MCG TABLET PO SCH (06:30)
[2019-07-03] MEDS: LEVOTHYROXINE SODIUM 75 MCG TABLET PO SCH (06:51)
[2019-07-03 07:28] LABS: Base Excess VBG 5.1 mEq/L; Oxygen Saturation VBG 84.7 %; pH VBG 7.57 (7.36-7.41)
--- NOTE | 2019-07-03 07:54 | Critical Care Progress Note ---
Date of Service July 03, 2019 Assessment & Plan (1) Admitted to intensive care unit: Reason Critically Ill: 58-year-old male admitted to the ICU following intentional overdose with aspirin and metformin. Neuro CAM ICU-Negative currently Hearing loss- uses hearing aids at home Suicide attempt with overdose -patient reported taking a half bottle of aspiring (unsure number of pills) and 10 tablets of metformin -currently denies suicidal ideation -appreciate psych consult, one-to one sitter -appreciate toxicology recs- will however currently do q4 BMP and VBG checks. Run sodium bicarb at 100 rather than 250 recommended due to pt's clinical picture, d/c LR -Salicylate level decreasing, pt stable -stable enough currently for downgrade to PCU/telemetry for continued monitoring Cardiac HTNresume home meds when appropriate Respiratory Patient maintaining sats on room air Will continue to monitor GI Can advance diet currently RENAL/LYTES -Monitor q4h BMPs -replete electrolytes as necessary -continue bicarb drip as above at 100 -d/c fluids Trevino strict I's and O's ENDO DM type IIhemoglobin A1c 5.7, no metformin given overdose ICU hyperglycemic protocol Hypothyroidismcontinue Synthroid HEME H&H stable, monitor routine CBCs ID No indication for infectious process at this time 2PIVs DVT PROPHYLAXIS SCDs, heparin Supervising Physician Co-Signing Physician Notes Dr. Velazquez was the resident-physician during care of patient. I separately evaluated patient for coronado portions of the history and the exam. I was present during the critical portion of medical decision making, and I discussed the case with the resident. I generally agree with the findings and plan except for any additions/exceptions noted. Patient had an intentional overdose of aspirin where he took roughly half a bottle of aspirin. He also claims to have taken 4 tablets of metformin. His salicylate level continues to downtrend. His anion gap has improved and his bicarb is also improved. His renal function remained stable. He continues to have a respiratory alkalosis on the venous blood gas which is appropriate given the salicylate toxicity. Poison control has been contacted. I think given that he is clinically substantially improved and the risk of volume overload in this gentleman who likely has some degree of diastolic heart failure, I would be very careful with his fluids. We discontinue his lactated Ringer's. We have decreased his bicarb drip to 100 cc an hour. I think he is safe to be transferred to the floor with every 4 hours BMP and VBG at this time given that his salicylate level continues to trend downwards. Notably his lactate has been negative throughout his hospitalization. Psychiatric consultation has also been obtained. He denies any suicidal ideation at present. He does acknowledge that there was a mistake for him to try to commit suicide and again he has no intention of further self-harm. Subjective Mr. Alvarez states he is not suicidal today. Hard of hearing, states he has hearing aids at home. States he has some tinnitus. States he has a cat at home which is why he has scratches all over his body. However denies headache, change to vision, runny nose, cough, sore throat, chest pain, SOB, palps, abd pain, diarrhea or constipation, swelling in hands or feet or associated numbness or tngling. Review of Systems Review of Systems: All systems reviewed & are unremarkable except as noted in HPI & below Physical Exam Physical Exam: General: Alert, oriented. Has difficulty hearing. Skin: Scratches on skin. Psych: Appropriate mood and affect, nonsuicidal Neuro: No gross deficits HEENT: NC/AT, PERRLA, EOMI, oropharynx moist. Chest: Nontender to palpation. CV: RRR, Normal s1, s2. No murmurs appreciated Resp: Breath sounds clear bilaterally but decreased. Abdomen: Soft, nontender, protuberant. No guarding. Extremities: No edema in lower extremities bilaterally. Results & Data Vital Signs (Past 12 Hours) Vital Signs Temp Pulse Resp BP Pulse Ox 07/03/19 06:00 98 H 18 106/58 L 100 07/03/19 05:00 102 H 18 99/67 L 100 07/03/19 04:00 36.7 C 102 H 21 122/72 94 07/03/19 03:02 102 H 21 121/61 92 07/03/19 02:15 103 H 21 122/69 93 07/03/19 01:05 106 H 24 116/63 96 07/03/19 00:30 106 H 23 126/70 98 07/03/19 00:00 36.6 C 113 H 23 132/67 95 07/02/19 23:33 115 H 27 H 107/65 97 07/02/19 23:01 115 H 20 146/77 H 98 07/02/19 21:50 118 H 35 H 99 07/02/19 21:40 119 H 26 H 99 07/02/19 21:30 122 H 25 H 98 07/02/19 21:20 118 H 19 97 07/02/19 21:15 118 H 17 99 07/02/19 21:10 120 H 25 H 97 07/02/19 21:06 36.6 C 121 H 25 H 141/80 H 97 07/02/19 21:05 121 H 18 97 07/02/19 21:03 120 H 25 H 07/02/19 20:50 120 H Laboratory Results Laboratory Results - last 24 hr 07/02/19 07/02/19 07/02/19 14:12 14:12 14:12 WBC 18.35 H RBC 5.14 Hgb 16.1 Hct 45.2 MCV 87.9 MCH 31.3 MCHC 35.6 RDW Std Deviation 42.7 RDW Coeff of Enedelia 13.3 Plt Count 246 MPV 10.1 Immature Gran % (Auto) 0.2 Neut % (Auto) 89.4 Lymph % (Auto) 6.8 [place] % (Auto) 3.2 Eos % (Auto) 0.2 Baso % (Auto) 0.2 Immature Gran # (Auto) 0.03 H Neut # (Auto) 16.44 H Lymph # (Auto) 1.24 [place] # (Auto) 0.58 Eos # (Auto) 0.03 Baso # (Auto) 0.03 PT INR ABG pH ABG pCO2 ABG pO2 ABG HCO3 ABG O2 Saturation ABG Base Excess Yazan Test VBG pH VBG pCO2 VBG pO2 VBG HCO3 VBG O2 Saturation VBG Base Excess Barometric Pressure Oxygen Given Sodium Potassium Chloride Carbon Dioxide Anion Gap BUN Creatinine Est Cr Clr Drug Dosing Est GFR ( Amer) Est GFR (Non-Af Amer) BUN/Creatinine Ratio Glucose POC Glucose Lactate 0.9 Calcium Magnesium Total Bilirubin AST ALT Alkaline Phosphatase Total Creatine Kinase 151 Total Protein Albumin Globulin Albumin/Globulin Ratio Lipase TSH Free T4 Urine Color Urine Appearance Urine pH Ur Specific [place] Urine Protein Urine Glucose (UA) Urine Ketones Urine Blood Urine Nitrite Urine Bilirubin Urine Urobilinogen Ur Leukocyte Esterase Urine WBC (Auto) Urine RBC (Auto) U Hyaline Cast (Auto) U Epithel Cells (Auto) Urine Bacteria (Auto) Ur Renal Epithelial Cell Nasal Screen MRSA (PCR) Salicylates Urine Opiates Screen Ur Methadone, Qual Acetaminophen Urine Barbiturates Ur Phencyclidine (PCP) U Amphetamin/Meth Scrn MDMA (Ecstasy) Screen U Benzodiazepines Scrn Ur Cocaine Metabolite U Marijuana (THC) Screen Ethyl Alcohol mg/dL Hepatitis C Ab Screen 07/02/19 07/02/19 07/02/19 14:12 14:12 14:12 WBC RBC Hgb Hct MCV MCH MCHC RDW Std Deviation RDW Coeff of Enedelia Plt Count MPV Immature Gran % (Auto) Neut % (Auto) Lymph % (Auto) [place] % (Auto) Eos % (Auto) Baso % (Auto) Immature Gran # (Auto) Neut # (Auto) Lymph # (Auto) [place] # (Auto) Eos # (Auto) Baso # (Auto) PT INR ABG pH ABG pCO2 ABG pO2 ABG HCO3 ABG O2 Saturation ABG Base Excess Yazan Test VBG pH VBG pCO2 VBG pO2 VBG HCO3 VBG O2 Saturation VBG Base Excess Barometric Pressure Oxygen Given Sodium 139 Potassium 4.3 Chloride 116 H Carbon Dioxide 17 L Anion Gap 6.0 BUN 18 Creatinine 1.35 Est Cr Clr Drug Dosing 82.2 Est GFR ( Amer) 66.1 Est GFR (Non-Af Amer) 57.1 BUN/Creatinine Ratio 13.6 Glucose 121 H POC Glucose Lactate Calcium 9.2 Magnesium Total Bilirubin 0.3 AST 23 ALT 35 Alkaline Phosphatase 88 Total Creatine Kinase Total Protein 8.9 H Albumin 3.8 Globulin 5.1 H Albumin/Globulin Ratio 0.7 L Lipase TSH 5.470 H Free T4 1.24 Urine Color Urine Appearance Urine pH Ur Specific [place] Urine Protein Urine Glucose (UA) Urine Ketones Urine Blood Urine Nitrite Urine Bilirubin Urine Urobilinogen Ur Leukocyte Esterase Urine WBC (Auto) Urine RBC (Auto) U Hyaline Cast (Auto) U Epithel Cells (Auto) Urine Bacteria (Auto) Ur Renal Epithelial Cell Nasal Screen MRSA (PCR) Salicylates 77.0 H* Urine Opiates Screen Ur Methadone, Qual Acetaminophen < 2 L Urine Barbiturates Ur Phencyclidine (PCP) U Amphetamin/Meth Scrn MDMA (Ecstasy) Screen U Benzodiazepines Scrn Ur Cocaine Metabolite U Marijuana (THC) Screen Ethyl Alcohol mg/dL < 3.0 Hepatitis C Ab Screen 07/02/19 07/02/1919 14:12 14:12 16:33 WBC RBC Hgb Hct MCV MCH MCHC RDW Std Deviation RDW Coeff of Enedelia Plt Count MPV Immature Gran % (Auto) Neut % (Auto) Lymph % (Auto) [place] % (Auto) Eos % (Auto) Baso % (Auto) Immature Gran # (Auto) Neut # (Auto) Lymph # (Auto) [place] # (Auto) Eos # (Auto) Baso # (Auto) PT INR ABG pH ABG pCO2 ABG pO2 ABG HCO3 ABG O2 Saturation ABG Base Excess Yazan Test VBG pH VBG pCO2 VBG pO2 VBG HCO3 VBG O2 Saturation VBG Base Excess Barometric Pressure Oxygen Given Sodium Potassium Chloride Carbon Dioxide Anion Gap BUN Creatinine Est Cr Clr Drug Dosing Est GFR ( Amer) Est GFR (Non-Af Amer) BUN/Creatinine Ratio Glucose POC Glucose Lactate 0.8 Calcium Magnesium Total Bilirubin AST ALT Alkaline Phosphatase Total Creatine Kinase Total Protein Albumin Globulin Albumin/Globulin Ratio Lipase 107 TSH Free T4 Urine Color Urine Appearance Urine pH Ur Specific [place] Urine Protein Urine Glucose (UA) Urine Ketones Urine Blood Urine Nitrite Urine Bilirubin Urine Urobilinogen Ur Leukocyte Esterase Urine WBC (Auto) Urine RBC (Auto) U Hyaline Cast (Auto) U Epithel Cells (Auto) Urine Bacteria (Auto) Ur Renal Epithelial Cell Nasal Screen MRSA (PCR) Salicylates Urine Opiates Screen Ur Methadone, Qual Acetaminophen Urine Barbiturates Ur Phencyclidine (PCP) U Amphetamin/Meth Scrn MDMA (Ecstasy) Screen U Benzodiazepines Scrn Ur Cocaine Metabolite U Marijuana (THC) Screen Ethyl Alcohol mg/dL Hepatitis C Ab Screen Neg 07/02/19 07/02/19 07/02/19 16:33 16:33 16:34 WBC RBC Hgb Hct MCV MCH MCHC RDW Std Deviation RDW Coeff of Enedelia Plt Count MPV Immature Gran % (Auto) Neut % (Auto) Lymph % (Auto) [place] % (Auto) Eos % (Auto) Baso % (Auto) Immature Gran # (Auto) Neut # (Auto) Lymph # (Auto) [place] # (Auto) Eos # (Auto) Baso # (Auto) PT INR ABG pH ABG pCO2 ABG pO2 ABG HCO3 ABG O2 Saturation ABG Base Excess Yazan Test VBG pH 7.49 H VBG pCO2 23 L VBG pO2 52 VBG HCO3 17 VBG O2 Saturation 88.6 VBG Base Excess -4.0 Barometric Pressure 733.6 Oxygen Given Sodium 140 Potassium 4.1 Chloride 120 H Carbon Dioxide 15 L Anion Gap 4.0 BUN 21 H Creatinine 1.28 Est Cr Clr Drug Dosing 86.7 Est GFR ( Amer) 70.5 Est GFR (Non-Af Amer) 60.9 BUN/Creatinine Ratio 16.0 Glucose 138 H POC Glucose Lactate Calcium 8.8 Magnesium Total Bilirubin AST ALT Alkaline Phosphatase Total Creatine Kinase Total Protein Albumin Globulin Albumin/Globulin Ratio Lipase TSH Free T4 Urine Color Urine Appearance Urine pH Ur Specific [place] Urine Protein Urine Glucose (UA) Urine Ketones Urine Blood Urine Nitrite Urine Bilirubin Urine Urobilinogen Ur Leukocyte Esterase Urine WBC (Auto) Urine RBC (Auto) U Hyaline Cast (Auto) U Epithel Cells (Auto) Urine Bacteria (Auto) Ur Renal Epithelial Cell Nasal Screen MRSA (PCR) Salicylates 77.4 H* Urine Opiates Screen Ur Methadone, Qual Acetaminophen Urine Barbiturates Ur Phencyclidine (PCP) U Amphetamin/Meth Scrn MDMA (Ecstasy) Screen U Benzodiazepines Scrn Ur Cocaine Metabolite U Marijuana (THC) Screen Ethyl Alcohol mg/dL Hepatitis C Ab Screen 07/02/19 07/02/19 07/02/19 17:07 18:58 18:58 WBC RBC Hgb Hct MCV MCH MCHC RDW Std Deviation RDW Coeff of Enedelia Plt Count MPV Immature Gran % (Auto) Neut % (Auto) Lymph % (Auto) [place] % (Auto) Eos % (Auto) Baso % (Auto) Immature Gran # (Auto) Neut # (Auto) Lymph # (Auto) [place] # (Auto) Eos # (Auto) Baso # (Auto) PT INR ABG pH 7.53 H* ABG pCO2 22 L ABG pO2 92 ABG HCO3 18 L ABG O2 Saturation 97.9 H ABG Base Excess -2.6 Yazan Test Pos VBG pH VBG pCO2 VBG pO2 VBG HCO3 VBG O2 Saturation VBG Base Excess Barometric Pressure 735.3 Oxygen Given ROOM AIR Sodium Potassium Chloride Carbon Dioxide Anion Gap BUN Creatinine Est Cr Clr Drug Dosing Est GFR ( Amer) Est GFR (Non-Af Amer) BUN/Creatinine Ratio Glucose POC Glucose 130 H Lactate Calcium Magnesium Total Bilirubin AST ALT Alkaline Phosphatase Total Creatine Kinase Total Protein Albumin Globulin Albumin/Globulin Ratio Lipase TSH Free T4 Urine Color Urine Appearance Urine pH Ur Specific [place] Urine Protein Urine Glucose (UA) Urine Ketones Urine Blood Urine Nitrite Urine Bilirubin Urine Urobilinogen Ur Leukocyte Esterase Urine WBC (Auto) Urine RBC (Auto) U Hyaline Cast (Auto) U Epithel Cells (Auto) Urine Bacteria (Auto) Ur Renal Epithelial Cell Nasal Screen MRSA (PCR) Salicylates 82.9 H* Urine Opiates Screen Ur Methadone, Qual Acetaminophen Urine Barbiturates Ur Phencyclidine (PCP) U Amphetamin/Meth Scrn MDMA (Ecstasy) Screen U Benzodiazepines Scrn Ur Cocaine Metabolite U Marijuana (THC) Screen Ethyl Alcohol mg/dL Hepatitis C Ab Screen 07/02/19 07/02/19 07/02/19 20:39 20:39 20:50 WBC RBC Hgb Hct MCV MCH MCHC RDW Std Deviation RDW Coeff of Enedelia Plt Count MPV Immature Gran % (Auto) Neut % (Auto) Lymph % (Auto) [place] % (Auto) Eos % (Auto) Baso % (Auto) Immature Gran # (Auto) Neut # (Auto) Lymph # (Auto) [place] # (Auto) Eos # (Auto) Baso # (Auto) PT INR ABG pH ABG pCO2 ABG pO2 ABG HCO3 ABG O2 Saturation ABG Base Excess Yazan Test VBG pH VBG pCO2 VBG pO2 VBG HCO3 VBG O2 Saturation VBG Base Excess Barometric Pressure Oxygen Given Sodium Potassium Chloride Carbon Dioxide Anion Gap BUN Creatinine Est Cr Clr Drug Dosing Est GFR ( Amer) Est GFR (Non-Af Amer) BUN/Creatinine Ratio Glucose POC Glucose 138 H Lactate Calcium Magnesium Total Bilirubin AST ALT Alkaline Phosphatase Total Creatine Kinase Total Protein Albumin Globulin Albumin/Globulin Ratio Lipase TSH Free T4 Urine Color Yellow Urine Appearance Clear Urine pH 6.0 Ur Specific [place] 1.022 Urine Protein 1+ H Urine Glucose (UA) Trace H Urine Ketones 2+ H Urine Blood Negative Urine Nitrite Negative Urine Bilirubin Negative Urine Urobilinogen Negative Ur Leukocyte Esterase Negative Urine WBC (Auto) 10-30 H Urine RBC (Auto) 0-4 U Hyaline Cast (Auto) 1-5 U Epithel Cells (Auto) >30 H Urine Bacteria (Auto) Negative Ur Renal Epithelial Cell Not Reportable Nasal Screen MRSA (PCR) Salicylates Urine Opiates Screen Neg Ur Methadone, Qual Neg Acetaminophen Urine Barbiturates Neg Ur Phencyclidine (PCP) Neg U Amphetamin/Meth Scrn Neg MDMA (Ecstasy) Screen Neg U Benzodiazepines Scrn Neg Ur Cocaine Metabolite Neg U Marijuana (THC) Screen Neg Ethyl Alcohol mg/dL Hepatitis C Ab Screen 07/02/19 07/02/19 07/02/19 21:53 21:54 21:54 WBC RBC Hgb Hct MCV MCH MCHC RDW Std Deviation RDW Coeff of Enedelia Plt Count MPV Immature Gran % (Auto) Neut % (Auto) Lymph % (Auto) [place] % (Auto) Eos % (Auto) Baso % (Auto) Immature Gran # (Auto) Neut # (Auto) Lymph # (Auto) [place] # (Auto) Eos # (Auto) Baso # (Auto) PT INR ABG pH ABG pCO2 ABG pO2 ABG HCO3 ABG O2 Saturation ABG Base Excess Yazan Test VBG pH VBG pCO2 VBG pO2 VBG HCO3 VBG O2 Saturation VBG Base Excess Barometric Pressure Oxygen Given Sodium 140 Potassium 3.6 Chloride 119 H Carbon Dioxide 19 L Anion Gap 2.0 L BUN 21 H Creatinine 1.37 Est Cr Clr Drug Dosing 81.0 Est GFR ( Amer) 65.0 Est GFR (Non-Af Amer) 56.1 BUN/Creatinine Ratio 15.3 Glucose 144 H POC Glucose Lactate 1.1 Calcium 8.3 L Magnesium Total Bilirubin AST ALT Alkaline Phosphatase Total Creatine Kinase Total Protein Albumin Globulin Albumin/Globulin Ratio Lipase TSH Free T4 Urine Color Urine Appearance Urine pH Ur Specific [place] Urine Protein Urine Glucose (UA) Urine Ketones Urine Blood Urine Nitrite Urine Bilirubin Urine Urobilinogen Ur Leukocyte Esterase Urine WBC (Auto) Urine RBC (Auto) U Hyaline Cast (Auto) U Epithel Cells (Auto) Urine Bacteria (Auto) Ur Renal Epithelial Cell Nasal Screen MRSA (PCR) Salicylates 83.2 H* Urine Opiates Screen Ur Methadone, Qual Acetaminophen Urine Barbiturates Ur Phencyclidine (PCP) U Amphetamin/Meth Scrn MDMA (Ecstasy) Screen U Benzodiazepines Scrn Ur Cocaine Metabolite U Marijuana (THC) Screen Ethyl Alcohol mg/dL Hepatitis C Ab Screen 07/02/19 07/02/19 07/02/19 21:54 22:52 23:36 WBC RBC Hgb Hct MCV MCH MCHC RDW Std Deviation RDW Coeff of Enedelia Plt Count MPV Immature Gran % (Auto) Neut % (Auto) Lymph % (Auto) [place] % (Auto) Eos % (Auto) Baso % (Auto) Immature Gran # (Auto) Neut # (Auto) Lymph # (Auto) [place] # (Auto) Eos # (Auto) Baso # (Auto) PT INR ABG pH ABG pCO2 ABG pO2 ABG HCO3 ABG O2 Saturation ABG Base Excess Yazan Test VBG pH 7.54 H VBG pCO2 22 L VBG pO2 67 VBG HCO3 18 VBG O2 Saturation 95.2 VBG Base Excess -1.7 Barometric Pressure 736.1 Oxygen Given Sodium Potassium Chloride Carbon Dioxide Anion Gap BUN Creatinine Est Cr Clr Drug Dosing Est GFR ( Amer) Est GFR (Non-Af Amer) BUN/Creatinine Ratio Glucose POC Glucose Lactate Calcium Magnesium Total Bilirubin AST ALT Alkaline Phosphatase Total Creatine Kinase Total Protein Albumin Globulin Albumin/Globulin Ratio Lipase TSH Free T4 Urine Color Urine Appearance Urine pH Ur Specific [place] Urine Protein Urine Glucose (UA) Urine Ketones Urine Blood Urine Nitrite Urine Bilirubin Urine Urobilinogen Ur Leukocyte Esterase Urine WBC (Auto) Urine RBC (Auto) U Hyaline Cast (Auto) U Epithel Cells (Auto) Urine Bacteria (Auto) Ur Renal Epithelial Cell Nasal Screen MRSA (PCR) Negative Salicylates 81.7 H* Urine Opiates Screen Ur Methadone, Qual Acetaminophen Urine Barbiturates Ur Phencyclidine (PCP) U Amphetamin/Meth Scrn MDMA (Ecstasy) Screen U Benzodiazepines Scrn Ur Cocaine Metabolite U Marijuana (THC) Screen Ethyl Alcohol mg/dL Hepatitis C Ab Screen 07/02/19 07/03/19 07/03/19 23:38 01:04 01:04 WBC RBC Hgb Hct MCV MCH MCHC RDW Std Deviation RDW Coeff of Enedelia Plt Count MPV Immature Gran % (Auto) Neut % (Auto) Lymph % (Auto) [place] % (Auto) Eos % (Auto) Baso % (Auto) Immature Gran # (Auto) Neut # (Auto) Lymph # (Auto) [place] # (Auto) Eos # (Auto) Baso # (Auto) PT INR ABG pH ABG pCO2 ABG pO2 ABG HCO3 ABG O2 Saturation ABG Base Excess Yazan Test VBG pH 7.60 H 7.54 H VBG pCO2 23 L 31 L VBG pO2 62 25 VBG HCO3 22 26 VBG O2 Saturation 94.4 < 60.0 VBG Base Excess 2.5 4.1 Barometric Pressure 736.6 736.9 Oxygen Given Sodium Potassium Chloride Carbon Dioxide Anion Gap BUN Creatinine Est Cr Clr Drug Dosing Est GFR ( Amer) Est GFR (Non-Af Amer) BUN/Creatinine Ratio Glucose POC Glucose Lactate Calcium Magnesium Total Bilirubin AST ALT Alkaline Phosphatase Total Creatine Kinase Total Protein Albumin Globulin Albumin/Globulin Ratio Lipase TSH Free T4 Urine Color Urine Appearance Urine pH Ur Specific [place] Urine Protein Urine Glucose (UA) Urine Ketones Urine Blood Urine Nitrite Urine Bilirubin Urine Urobilinogen Ur Leukocyte Esterase Urine WBC (Auto) Urine RBC (Auto) U Hyaline Cast (Auto) U Epithel Cells (Auto) Urine Bacteria (Auto) Ur Renal Epithelial Cell Nasal Screen MRSA (PCR) Salicylates 73.5 H* Urine Opiates Screen Ur Methadone, Qual Acetaminophen Urine Barbiturates Ur Phencyclidine (PCP) U Amphetamin/Meth Scrn MDMA (Ecstasy) Screen U Benzodiazepines Scrn Ur Cocaine Metabolite U Marijuana (THC) Screen Ethyl Alcohol mg/dL Hepatitis C Ab Screen 07/03/19 07/03/19 07/03/19 01:04 01:04 03:02 WBC RBC Hgb Hct MCV MCH MCHC RDW Std Deviation RDW Coeff of Enedelia Plt Count MPV Immature Gran % (Auto) Neut % (Auto) Lymph % (Auto) [place] % (Auto) Eos % (Auto) Baso % (Auto) Immature Gran # (Auto) Neut # (Auto) Lymph # (Auto) [place] # (Auto) Eos # (Auto) Baso # (Auto) PT INR ABG pH ABG pCO2 ABG pO2 ABG HCO3 ABG O2 Saturation ABG Base Excess Yazan Test VBG pH VBG pCO2 VBG pO2 VBG HCO3 VBG O2 Saturation VBG Base Excess Barometric Pressure Oxygen Given Sodium 142 Potassium 3.5 Chloride 115 H Carbon Dioxide 22 Anion Gap 5.0 BUN 20 H Creatinine 1.42 H Est Cr Clr Drug Dosing 78.2 Est GFR ( Amer) 62.2 Est GFR (Non-Af Amer) 53.7 BUN/Creatinine Ratio 14.3 Glucose 124 H POC Glucose Lactate 0.7 Calcium 8.0 L Magnesium Total Bilirubin AST ALT Alkaline Phosphatase Total Creatine Kinase Total Protein Albumin Globulin Albumin/Globulin Ratio Lipase TSH Free T4 Urine Color Urine Appearance Urine pH Ur Specific [place] Urine Protein Urine Glucose (UA) Urine Ketones Urine Blood Urine Nitrite Urine Bilirubin Urine Urobilinogen Ur Leukocyte Esterase Urine WBC (Auto) Urine RBC (Auto) U Hyaline Cast (Auto) U Epithel Cells (Auto) Urine Bacteria (Auto) Ur Renal Epithelial Cell Nasal Screen MRSA (PCR) Salicylates 68.1 H* Urine Opiates Screen Ur Methadone, Qual Acetaminophen Urine Barbiturates Ur Phencyclidine (PCP) U Amphetamin/Meth Scrn MDMA (Ecstasy) Screen U Benzodiazepines Scrn Ur Cocaine Metabolite U Marijuana (THC) Screen Ethyl Alcohol mg/dL Hepatitis C Ab Screen 07/03/19 07/03/19 07/03/19 03:02 04:25 05:17 WBC 15.45 H RBC 4.42 L Hgb 13.5 L Hct 39.3 L MCV 88.9 MCH 30.5 MCHC 34.4 RDW Std Deviation 45.2 RDW Coeff of Enedelia 13.9 Plt Count 232 MPV 10.4 Immature Gran % (Auto) 0.3 Neut % (Auto) 78.8 Lymph % (Auto) 13.3 [place] % (Auto) 7.4 Eos % (Auto) 0.1 Baso % (Auto) 0.1 Immature Gran # (Auto) 0.04 H Neut # (Auto) 12.16 H Lymph # (Auto) 2.06 [place] # (Auto) 1.15 H Eos # (Auto) 0.02 Baso # (Auto) 0.02 PT INR ABG pH ABG pCO2 ABG pO2 ABG HCO3 ABG O2 Saturation ABG Base Excess Yazan Test VBG pH 7.56 H VBG pCO2 29 L VBG pO2 45 VBG HCO3 25 VBG O2 Saturation 85.0 VBG Base Excess 3.8 Barometric Pressure 736.9 Oxygen Given Sodium Potassium Chloride Carbon Dioxide Anion Gap BUN Creatinine Est Cr Clr Drug Dosing Est GFR ( Amer) Est GFR (Non-Af Amer) BUN/Creatinine Ratio Glucose POC Glucose Lactate Calcium Magnesium Total Bilirubin AST ALT Alkaline Phosphatase Total Creatine Kinase Total Protein Albumin Globulin Albumin/Globulin Ratio Lipase TSH Free T4 Urine Color Urine Appearance Urine pH 7.0 Ur Specific [place] Urine Protein Urine Glucose (UA) Urine Ketones Urine Blood Urine Nitrite Urine Bilirubin Urine Urobilinogen Ur Leukocyte Esterase Urine WBC (Auto) Urine RBC (Auto) U Hyaline Cast (Auto) U Epithel Cells (Auto) Urine Bacteria (Auto) Ur Renal Epithelial Cell Nasal Screen MRSA (PCR) Salicylates Urine Opiates Screen Ur Methadone, Qual Acetaminophen Urine Barbiturates Ur Phencyclidine (PCP) U Amphetamin/Meth Scrn MDMA (Ecstasy) Screen U Benzodiazepines Scrn Ur Cocaine Metabolite U Marijuana (THC) Screen Ethyl Alcohol mg/dL Hepatitis C Ab Screen 07/03/19 07/03/19 07/03/19 05:17 05:17 05:17 WBC RBC Hgb Hct MCV MCH MCHC RDW Std Deviation RDW Coeff of Enedelia Plt Count MPV Immature Gran % (Auto) Neut % (Auto) Lymph % (Auto) [place] % (Auto) Eos % (Auto) Baso % (Auto) Immature Gran # (Auto) Neut # (Auto) Lymph # (Auto) [place] # (Auto) Eos # (Auto) Baso # (Auto) PT INR ABG pH ABG pCO2 ABG pO2 ABG HCO3 ABG O2 Saturation ABG Base Excess Yazan Test VBG pH 7.53 H VBG pCO2 29 L VBG pO2 54 VBG HCO3 23 VBG O2 Saturation 89.9 VBG Base Excess 1.5 Barometric Pressure 738.0 Oxygen Given Sodium 140 Potassium 3.3 L Chloride 113 H Carbon Dioxide 24 Anion Gap 3.0 BUN 20 H Creatinine 1.37 Est Cr Clr Drug Dosing 81.0 Est GFR ( Amer) 65.0 Est GFR (Non-Af Amer) 56.1 BUN/Creatinine Ratio 14.6 Glucose 114 H POC Glucose Lactate Calcium 7.8 L Magnesium 2.2 Total Bilirubin 0.4 AST 18 ALT 23 Alkaline Phosphatase 64 Total Creatine Kinase Total Protein 6.6 D Albumin 2.9 L Globulin 3.7 Albumin/Globulin Ratio 0.8 L Lipase TSH Free T4 Urine Color Urine Appearance Urine pH Ur Specific [place] Urine Protein Urine Glucose (UA) Urine Ketones Urine Blood Urine Nitrite Urine Bilirubin Urine Urobilinogen Ur Leukocyte Esterase Urine WBC (Auto) Urine RBC (Auto) U Hyaline Cast (Auto) U Epithel Cells (Auto) Urine Bacteria (Auto) Ur Renal Epithelial Cell Nasal Screen MRSA (PCR) Salicylates 62.0 H* Urine Opiates Screen Ur Methadone, Qual Acetaminophen Urine Barbiturates Ur Phencyclidine (PCP) U Amphetamin/Meth Scrn MDMA (Ecstasy) Screen U Benzodiazepines Scrn Ur Cocaine Metabolite U Marijuana (THC) Screen Ethyl Alcohol mg/dL Hepatitis C Ab Screen 07/03/19 07/03/1907/03/19 07:09 07:09 07:10 WBC RBC Hgb Hct MCV MCH MCHC RDW Std Deviation RDW Coeff of Enedelia Plt Count MPV Immature Gran % (Auto) Neut % (Auto) Lymph % (Auto) [place] % (Auto) Eos % (Auto) Baso % (Auto) Immature Gran # (Auto) Neut # (Auto) Lymph # (Auto) [place] # (Auto) Eos # (Auto) Baso # (Auto) PT INR ABG pH ABG pCO2 ABG pO2 ABG HCO3 ABG O2 Saturation ABG Base Excess Yazan Test VBG pH 7.57 H VBG pCO2 29 L VBG pO2 45 VBG HCO3 26 VBG O2 Saturation 84.7 VBG Base Excess 5.1 Barometric Pressure 738.3 Oxygen Given Sodium Potassium Chloride Carbon Dioxide Anion Gap BUN Creatinine Est Cr Clr Drug Dosing Est GFR ( Amer) Est GFR (Non-Af Amer) BUN/Creatinine Ratio Glucose POC Glucose Lactate 0.7 Calcium Magnesium Total Bilirubin AST ALT Alkaline Phosphatase Total Creatine Kinase Total Protein Albumin Globulin Albumin/Globulin Ratio Lipase TSH Free T4 Urine Color Urine Appearance Urine pH Ur Specific [place] Urine Protein Urine Glucose (UA) Urine Ketones Urine Blood Urine Nitrite Urine Bilirubin Urine Urobilinogen Ur Leukocyte Esterase Urine WBC (Auto) Urine RBC (Auto) U Hyaline Cast (Auto) U Epithel Cells (Auto) Urine Bacteria (Auto) Ur Renal Epithelial Cell Nasal Screen MRSA (PCR) Salicylates 59.6 H* Urine Opiates Screen Ur Methadone, Qual Acetaminophen Urine Barbiturates Ur Phencyclidine (PCP) U Amphetamin/Meth Scrn MDMA (Ecstasy) Screen U Benzodiazepines Scrn Ur Cocaine Metabolite U Marijuana (THC) Screen Ethyl Alcohol mg/dL Hepatitis C Ab Screen 07/03/19 07/03/19 07/03/19 09:09 09:09 09:09 WBC RBC Hgb Hct MCV MCH MCHC RDW Std Deviation RDW Coeff of Enedelia Plt Count MPV Immature Gran % (Auto) Neut % (Auto) Lymph % (Auto) [place] % (Auto) Eos % (Auto) Baso % (Auto) Immature Gran # (Auto) Neut # (Auto) Lymph # (Auto) [place] # (Auto) Eos # (Auto) Baso # (Auto) PT INR ABG pH ABG pCO2 ABG pO2 ABG HCO3 ABG O2 Saturation ABG Base Excess Yazan Test VBG pH 7.55 H VBG pCO2 32 L VBG pO2 43 VBG HCO3 27 VBG O2 Saturation 82.0 VBG Base Excess 5.4 Barometric Pressure 739.0 Oxygen Given Sodium 143 Potassium 3.2 L Chloride 115 H Carbon Dioxide 24 Anion Gap 4.0 BUN 21 H Creatinine 1.49 H Est Cr Clr Drug Dosing 74.5 Est GFR ( Amer) 58.7 Est GFR (Non-Af Amer) 50.6 BUN/Creatinine Ratio 14.2 Glucose 126 H POC Glucose Lactate Calcium 8.1 L Magnesium Total Bilirubin AST ALT Alkaline Phosphatase Total Creatine Kinase Total Protein Albumin Globulin Albumin/Globulin Ratio Lipase TSH Free T4 Urine Color Urine Appearance Urine pH Ur Specific [place] Urine Protein Urine Glucose (UA) Urine Ketones Urine Blood Urine Nitrite Urine Bilirubin Urine Urobilinogen Ur Leukocyte Esterase Urine WBC (Auto) Urine RBC (Auto) U Hyaline Cast (Auto) U Epithel Cells (Auto) Urine Bacteria (Auto) Ur Renal Epithelial Cell Nasal Screen MRSA (PCR) Salicylates 53.6 H* Urine Opiates Screen Ur Methadone, Qual Acetaminophen Urine Barbiturates Ur Phencyclidine (PCP) U Amphetamin/Meth Scrn MDMA (Ecstasy) Screen U Benzodiazepines Scrn Ur Cocaine Metabolite U Marijuana (THC) Screen Ethyl Alcohol mg/dL Hepatitis C Ab Screen 07/03/19 07/03/19 10:07 10:57 WBC RBC Hgb Hct MCV MCH MCHC RDW Std Deviation RDW Coeff of Enedelia Plt Count MPV Immature Gran % (Auto) Neut % (Auto) Lymph % (Auto) [place] % (Auto) Eos % (Auto) Baso % (Auto) Immature Gran # (Auto) Neut # (Auto) Lymph # (Auto) [place] # (Auto) Eos # (Auto) Baso # (Auto) PT Pending INR Pending ABG pH ABG pCO2 ABG pO2 ABG HCO3 ABG O2 Saturation ABG Base Excess Yazan Test VBG pH VBG pCO2 VBG pO2 VBG HCO3 VBG O2 Saturation VBG Base Excess Barometric Pressure Oxygen Given Sodium Potassium Chloride Carbon Dioxide Anion Gap BUN Creatinine Est Cr Clr Drug Dosing Est GFR ( Amer) Est GFR (Non-Af Amer) BUN/Creatinine Ratio Glucose POC Glucose 95 Lactate Calcium Magnesium Total Bilirubin AST ALT Alkaline Phosphatase Total Creatine Kinase Total Protein Albumin Globulin Albumin/Globulin Ratio Lipase TSH Free T4 Urine Color Urine Appearance Urine pH Ur Specific [place] Urine Protein Urine Glucose (UA) Urine Ketones Urine Blood Urine Nitrite Urine Bilirubin Urine Urobilinogen Ur Leukocyte Esterase Urine WBC (Auto) Urine RBC (Auto) U Hyaline Cast (Auto) U Epithel Cells (Auto) Urine Bacteria (Auto) Ur Renal Epithelial Cell Nasal Screen MRSA (PCR) Salicylates Urine Opiates Screen Ur Methadone, Qual Acetaminophen Urine Barbiturates Ur Phencyclidine (PCP) U Amphetamin/Meth Scrn MDMA (Ecstasy) Screen U Benzodiazepines Scrn Ur Cocaine Metabolite U Marijuana (THC) Screen Ethyl Alcohol mg/dL Hepatitis C Ab Screen Medications Administered Home Medications aspirin 81 mg PO DAILY 07/02/19 [History Confirmed 07/02/19] atenolol 25 mg PO DAILY 07/02/19 [History Confirmed 07/02/19] atorvastatin 40 mg PO HS 07/02/19 [History Confirmed 07/02/19] levothyroxine 150 mcg PO DAILY 07/02/19 [History Confirmed 07/02/19] metformin 500 mg PO BIDM 07/02/19 [History Confirmed 07/02/19] sertraline 50 mg PO DAILY 07/02/19 [History Confirmed 07/02/19] Active Medications Acetaminophen (Tylenol) 650 mg PO Q4H PRN PRN Reason: Pain or Fever Stop: 08/01/19 17:16 Al Hydrox/Mg Hydrox/Simethicone (Maalox) 15 ml PO Q4H PRN PRN Reason: Dyspepsia Stop: 08/01/19 17:16 Last Admin: 07/02/19 19:41 Dose: 15 ml Documented by: Dextrose (Dextrose 50%) 25 - 50 ml IV UD PRN; Protocol PRN Reason: Hypoglycemia Protocol Stop: 08/01/19 17:16 Enoxaparin Sodium (Lovenox) 40 mg SQ QAM CAITY Stop: 08/02/19 10:59 Glucagon (Glucagen) 1 mg SQ UD PRN; Protocol PRN Reason: Hypoglycemia Protocol Stop: 08/01/19 17:16 Glucose (Glucose 40%) 15 - 30 gm PO UD PRN; Protocol PRN Reason: Hypoglycemia Protocol Stop: 08/01/19 17:16 Glucose (Dex4 Glucose) 4 - 8 tabs PO UD PRN; Protocol PRN Reason: Hypoglycemia Protocol Stop: 08/01/19 17:16 Sodium Bicarbonate 150 meq/Potassium Chloride 30 meq/Dextrose 1,165 mls @ 100 mls/hr IV .[id number] CAITY Stop: 07/03/19 21:50 Last Infusion: 07/03/19 11:09 Dose: Infused Documented by: Levothyroxine Sodium (Synthroid) 75 mcg PO DAILYBB CAITY Stop: 08/02/19 06:29 Last Admin: 07/03/19 06:51 Dose: 75 mcg Documented by: Magnesium Hydroxide (Milk Of Magnesia) 30 ml PO Q12H PRN PRN Reason: Constipation Stop: 08/01/19 17:16 Miscellaneous (Carbohydrates For Hypoglycemia) 15 - 30 gm PO UD PRN PRN Reason: Hypoglycemia Treatment Stop: 08/01/19 17:16 Miscellaneous (Remove Nicoderm Patch) 1 ea N/A HS [facility] Stop: 08/01/19 20:59 Last Admin: 07/02/19 21:08 Dose: Not Given Documented by: Miscellaneous (Icu Protocol For Hyperglycemia) 1 ea N/A PRN PRN; Protocol PRN Reason: Hyperglycemia Protocol Stop: 07/04/19 22:11 Nicotine (Nicoderm Cq) 14 mg TD QAM CAITY Stop: 08/02/19 08:59 Last Admin: 07/03/19 08:37 Dose: 14 mg Documented by: Ondansetron HCl (Zofran) 4 mg IV Q6H PRN PRN Reason: Nausea Stop: 08/01/19 17:16 Polyethylene Glycol (Miralax Powder Packet) 17 gm PO DAILY PRN PRN Reason: Constipation Stop: 08/01/19 17:16 Sertraline HCl (Zoloft) 50 mg PO DAILY CAITY Stop: 08/02/19 08:59 Last Admin: 07/03/19 08:37 Dose: 50 mg Documented by: PG Care Time/CCT Total # of Minutes Spent Total Time Spent with Patient: Total time spent is greater than 50% in coordination of care (as documented) at patient's floor/unit and/or counseling patient: Resident Activity Tracking Resident Involvement: Resident Care Provided Care Provided: Adult Hospital Medicine
[2019-07-03] MEDS: NICOTINE 14 MG/24 HR PATCH TD SCH (08:37)
[2019-07-03] MEDS: SERTRALINE HCL 50 MG TABLET PO SCH (08:37)
[2019-07-03] MEDS ORDERED: ATENOLOL 25 MG TABLET PO SCH (09:00)
[2019-07-03 09:22] LABS: Base Excess VBG 5.4 mEq/L; pH VBG 7.55 (7.36-7.41)
[2019-07-03 09:37] LABS: BUN Creatinine Ratio 14.2 (10-20); Calcium 8.1 mg/dl (8.5-10.1); Creatinine Clr Calc Pharmacy 74.5 ml/min; Est GFR (African American) 58.7; Est GFR (Non-African American) 50.6; Potassium 3.2 mmol/L (3.5-5.1)
--- NOTE | 2019-07-03 09:58 | Psychiatric Consultation ---
Date of Consultation July 03, 2019 Impression / Recommendations Impression 58-year-old male admitted medically on 07/02/2019 status post intentional overdose. It was reported the patient's had requested a divorce, which led to an argument. Patient admits to ingesting 10 tablets of 500 mg of Metformin and "half a bottle" of aspirin (~50 tablets). Patient does admit that the overdose was done with intent to end his life. Patient does receive antidepressant medications from his PCP, which she recently restarted in January 2019. He does not feel that the medication has been effective for managing his mood and anxiety. Patient states that he is no longer suicidal stating "does not how I should have handled this, I should have talked to someone." Although patient is regretful of his decision, he does admit that he had been experiencing suicidal ideation with intent to end his life for about 4 months prior to acting on the thoughts impulsively. Patient continues to be at high risk of harm to himself if risk factors are not appropriately mitigated. It would be the recommendation of the service that the patient be referred for inpatient psychiatric treatment, to allow for therapeutic interventions and appropriate medication adjustments. Would recommend continuing sertraline 50 mg daily, with adjustments to be deferred to accepting psychiatric facility. There was a 302 petitioning statement completed ED psychiatric mental health case manager. Patient should not be permitted to leave the hospital AMA, and if requesting to do so a 302 warrant can be pursued with assistance from can help. At time of evaluation, patient is preferring to return home at discharge, but states he would comply with psychiatric recommendations. We will reevaluate patient's voluntary status at time of medical clearance. Patient denies any acute safety concerns regarding his hospital stay, continue medical treatment per primary team. We appreciate the opportunity to participate in the care of this patient. Dr. Kalani Bolton was directly involved in review and discussion of the patient's case and participated in medical decision making regarding treatment recommendations. PLAN: 07/03 - Continue sertraline 50mg daily - Recommending inpatient psychiatric admission at time of medical clearance - 302 petitioning statement on chart from ED psych mental health case manager - Pt should not be permitted to leave AMA Risk Factors Assessment Male: Yes : Yes Do You Have Access To A Gun?: No Health Problems: Yes Mental Health Diagnoses: Yes Family History of Suicide: Yes (brother attempted suicide) Previous Psychiatric Hospitalization: Yes Hopelessness: No Protective Factors Assessment : Yes Employed: No Stable Relationships: No ( requesting divorce) Psych History Identifying Data 58-year-old male admitted medically on 07/02/19 after presenting to the ED s/p intentional overdose of metformin and aspirin. Pt admitted the toxic ingestion was an attempt to end his life. 302 petitioning statement was completed by ED psychiatric mental health case manager. Psychiatric consultation was requested to evaluate patient after this suicide attempt. Information is gathered from hospital documentation and the patient himself - combination of which is considered to be reliable. Chief Complaint "I'm alright. A lot better now than I was earlier." History of Present Illness Sarah Alvarez is a 58-year-old male admitted medically on 07/02/19 after intentionally consuming 10 tablets of 500mg metformin and ~50 tablets of aspirin in an attempt to end his life. It was reported the patient took the overdose after he had an argument with his . Psychiatric consultation is requested to evaluate patient after his suicide attempt. Patient's case was reviewed and discussed with psychiatric nurse liaison and psychiatrist. Pt is cooperative with assessment and states, "I'm a lot better now than I was yesterday." Pt admits that the intent behind his overdose was "I tried to take my own life." Pt states that he and his had been arguing, when she asked for a divorce. Pt became upset and impulsively took the medication. He states, "she told me God told her to do it." Pt states he is not suicidal at this time, verbalizing "[suicide] is not worth it, it's not worth putting yourself through all this. I should have talked to someone instead." Pt continues to verbalize "this ain't me, this was never me." Despite the impulsivity of his suicide attempt, the patient states that he had been experiencing suicidal ideation for 4 months. He reports "I've thought about it for a while, I just didn't say it. People would ask and I'd tell them no." Pt states his current psychiatric diagnoses are "I've got anxiety. Anxiety, and depression, and something else. Oh, yeah, I'm bipolar." Pt states that when he is experiencing anxiety, he generally notices increased irritability and frequent headaches. He denies panic attacks. Pt states that when his mood is low, he tends to isolate. His appetite is reduced and he has difficulty falling and staying asleep. He reports increased daytime sleeping in order to "escape." Pt is prescribed sertraline 50mg by his PCP. He states he had utilized the medication in the past but had discontinued it. He restarted the medication when he returned to the area in 01/2019. He does not feel the medicat ion has been overly helpful in managing his anxiety and depression. He denies significant psychiatric history to this provider, denying inpatient psychiatric admissions. He informed our liaison that he had been hospitalized psychiatrically "in my 30's." Pt denies SI, HI, SIB, A/V hallucinations, paranoia, mitchell/hypomania, other symptoms more suggestive of a bipolar presentation, OCD, PTSD, eating disorder, and other specific psychiatric symptoms. Past Psychiatric History Current Psychiatric Diagnosis: Depression, Anxiety Outpatient Services: Psychiatric medications are prescribed by his PCP. Previous Psych Admissions: Reports 1 psychiatric admission in his 30s, unknown facility and reason for admission Do You Have Access To A Gun?: No History of Previous Suicide Attempt: No Past Medication Trials: Zoloft Allergies Allergy/AdvReac Type Severity Reaction Status Date / Time No Known Allergies Allergy Unverified 06/23/19 18:12 Home Medications Home Medications Medication Instructions Recorded Confirmed Type aspirin 81 mg PO DAILY 07/02/19 07/02/19 History atenolol 25 mg PO DAILY 07/02/19 07/02/19 History atorvastatin 40 mg PO HS 07/02/19 07/02/19 History levothyroxine 150 mcg PO DAILY 07/02/19 07/02/19 History metformin 500 mg PO BIDM 07/02/19 07/02/19 History sertraline 50 mg PO DAILY 07/02/19 07/02/19 History Family History Pt denies known family history of mental health conditions. He does admit his brother had attempted suicide. Substance Abuse History Patient denies alcohol use. He denies routine use of or prior experimentation with illicit substances. Pt denies history of substance abuse treatment. 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) Marital Status: (though has been having difficulty recently) Number Of Children: 1 daughter - in her 30's Beliefs That Will Affect Care: None History of Legal Problems: Denies Psychological Trauma History Comment: Denies Patient History Medical History History of TIA (transient ischemic attack) Depression Hypothyroidism HLD (hyperlipidemia) HTN (hypertension) Diabetes Surgical History History of hernia surgery Hx of eye surgery Family History Mother Dementia CHF (congestive heart failure) Father Diabetes Social History Preferred Language: Martiniquais Communication Ability: Effective Communication Ability Comment: very hard of hearing Hearing Ability: Hard of Hearing Line Inspector Required: No Beliefs That Will Affect Care: None marital status: Current Living Situation: Spouse current occupational status: disabled Other Information That Helps Us Care for You: No Feels Safe at Home: Yes Safety Concerns: Feels Safe At This Time Smoking Status: Current every day smoker Tobacco Type: smokeless tobacco ; Hx Alcohol Use: No Hx Substance Use: Yes substance use type: other Substance Use Type Other:: overdose Last Used Substance: Just Prior to Arrival Physical Exam Psychiatric: Orientation: alert, oriented x 3 and cooperative Apperance: + disheveled (malodorous, poor dentition) and appeared stated age; + inappropriately dressed (chest exposed, not wearing hospital gown) Eye Contact: + fair eye contact Motor Behavior: no abnormal motor movements (observed while laying in bed) Speech: normal rate/rhythm/volume of speech (somewhat muffled, patient is hard of hearing) Affect: + depressed affect and mood congruent with affect Mood: + depressed mood and + anxious mood Thought Process: goal directed thought process, clear/coherent thought process and + concrete thought process Thought Content: reality based without delusions; no hopelessness Suicidal Thoughts: denies suicidal thoughts (at time of encounter) and denies suicidal intent (at this time) Pt admits to suicide attempt was with the intent to end his life Homicidal Thoughts: denies homicidal thoughts Hallucinations: no auditory hallucinations and no visual hallucinations Cognition: attention grossly intact and language grossly intact Estimated Intelligence: + below average estimated intelligence Insight: + limited insight Judgement: + limited judgement Vital Signs (Past 24 Hours): Last Vital Signs Temp 36.7 C 07/03/19 04:00 Pulse 98 H 07/03/19 06:00 Resp 18 07/03/19 06:00 BP 106/58 L 07/03/19 06:00 Pulse Ox 100 07/03/19 06:00 Review of Systems Constitutional: denied Cardiovascular: denied Respiratory: denied Gastrointestinal: denied Neurological: denied Psychiatric: denies symptoms other than stated above Total of at least 10 systems reviewed, pertinent positives as above and in HPI. Results & Data Medications Administered Al Hydrox/Mg Hydrox/Simethicone (Maalox) 15 ml PO Q4H PRN PRN Reason: Dyspepsia Stop: 08/01/19 17:16 Last Admin: 07/02/19 19:41 Dose: 15 ml Documented by: [id number] Sodium Bicarbonate 150 meq/Potassium Chloride 30 meq/Dextrose 1,165 mls @ 200 mls/hr IV .[id number] CAITY Stop: 07/03/19 13:45 Last Infusion: 07/03/19 05:15 Dose: 200 mls/hr Documented by: [id number] Admin: 07/03/19 03:21 Dose: 150 mls/hr Documented by: [id number] Infusion: 07/03/19 03:06 Dose: 150 mls/hr Documented by: [id number] Infusion: 07/03/19 00:30 Dose: 150 mls/hr Documented by: [id number] Infusion: 07/02/19 23:26 Dose: 250 mls/hr Documented by: [id number] Infusion: 07/02/19 22:47 Dose: 150 mls/hr Documented by: [id number] Admin: 07/02/19 21:08 Dose: 250 mls/hr Documented by: [id number] Lactated Ringer's (Lr) 1,000 mls @ 150 mls/hr IV .[id number] CAITY Stop: 08/02/19 02:59 Last Admin: 07/03/19 03:20 Dose: 150 mls/hr Documented by: [id number] Levothyroxine Sodium (Synthroid) 75 mcg PO DAILYBB [facility] Stop: 08/02/19 06:29 Last Admin: 07/03/19 06:51 Dose: 75 mcg Documented by: [id number] Miscellaneous (Remove Nicoderm Patch) 1 ea N/A HS CA[facility] Stop: 08/01/19 20:59 Last Admin: 07/02/19 21:08 Dose: Not Given Documented by: [id number] Nicotine (Nicoderm Cq) 14 mg TD QAM CAITY Stop: 08/02/19 08:59 Last Admin: 07/03/19 08:37 Dose: 14 mg Documented by: [id number] Sertraline HCl (Zoloft) 50 mg PO DAILY CA[facility] Stop: 08/02/19 08:59 Last Admin: 07/03/19 08:37 Dose: 50 mg Documented by: [id number] Coding Level of Care Code 57393 U Intl Hosp Care Lvl 3
[2019-07-03 11:26] LABS: INR 2.1 (0.9-1.1); Prothrombin Time 20.7 Seconds (9.0-12.0)
[2019-07-03] MEDS: ENOXAPARIN INJ 40 MG/0.4 ML SYR SQ SCH (12:08)
[2019-07-03 13:33] LABS: BUN Creatinine Ratio 15.2 (10-20); Calcium 7.9 mg/dl (8.5-10.1); Est GFR (African American) 57.3; Est GFR (Non-African American) 49.4; Potassium 3.3 mmol/L (3.5-5.1)
[2019-07-03 13:57] LABS: Base Excess VBG 3.7 mEq/L; pH VBG 7.51 (7.36-7.41)
--- NOTE | 2019-07-03 15:46 | Nephrology Consultation ---
Date of Consultation July 03, 2019 Assessment & Plan (1) Aspirin overdose: Salicylate levels trending down >> last one 45 Has not had elevated lactate or anion gap at all No acidemia so far but need to watch for it b/c remains at risk; + alkalemia stable to slightly improved Mild SAMIR but does meet criteria he did have some tachypnea, none sustained since MN; does have elevated INR; no thrombocytopenia -cont q2-4h salicylate levels until levels consistently <40; thereafter q6-8h until <25 -check q4h bmp -- d/t K mostly (see below) -cont q4h VBG >> if any concern for acidemia or sudden drops in pH, check q2hrs; low threshold for A line/ ABGs if worsening -recheck urine pH now; if clinically stable/ improving no need to recheck -continue bicarbonate gtt at 100 mL hourly >> ideally rate should be titrated to urine pH 7.5-8.0 and would start to do this if he decompensates overnight; reluctant to increase now however d/t his cough which he states is new -needs a baseline CXR now (thick cough in exam); recheck CXR if concerns about fluid status -call nephrology monogram technician (Dr Mao) to discuss if change in ms or other marked clinical deterioration, severe acidemia or volume overload Present on Admission?: Yes (2) Hypokalemia: this needs aggressive repletion to facilitate urine alkalinization -he was initially on LR; this was changed this am; also had 40 mEq K x 1 po today -will give another 40 mEq po now -goal K is 4.0 >> give K to reach this; may need repeated doses >>>given weakness, check mag and phos w/ next chemistry Present on Admission?: Yes (3) Acute renal failure: baseline creatinine 1.1; was 1.4 on presentation and last check is 1.5. no oliguria. -monitor bmp q4h for now; if K at 4 x 2 checks, then may check q8h Present on Admission?: No History of Present Illness Reason for Consultation: ASA ingestion w/ ? need for dialysis Requesting Physician: Dr Vasquez Attending Physician: James Vasquez MD History of Present Illness 58 y/o F whom I'm asked to evaluate for need for dialysis after he was admitted to ICU yesterday after intentional ASA OD. He took 1/2 bottle of 81 mg ASA and 10 metformin tablets late evening 07/01 or early AM 07/02 (pt unsur exact time). Pt was distraught about marital difficulties. Woke on 10/02 AM w/ N/V/diaphoresis >> called EMS and came to ER. PMH includes TIA, depression, HL, HTN, DM. Pt was started on bicarb gtt, and salicylate/VBG have been followed every 2 hrs. The admitting team reviewed the case w/ my monogram technician partner; he did not feel dialysis was indicated last evening and recommended conservative measures. The ASA level is trending down; lactate has never been elevated. his baseline creatinine is 1.1. His presenting creatinine was 1.4; up to 1.5 this am. The rest of the tox screen was negative. His presenting ASA level was 83 at 2100 last evening, trending down to 54 at 0900 today and 45 this afternoon. His pH on VBG was 7.54 at 2200 last evening, peaked at 7.6 at midnight, at 1330 was 7.5. he has had consistent hypokalemia. Allergies Allergy/AdvReac Type Severity Reaction Status Date / Time No Known Allergies Allergy Unverified 06/23/19 18:12 Home Medications Home Medications Medication Instructions Recorded Confirmed Type aspirin 81 mg PO DAILY 07/02/19 07/02/19 History atenolol 25 mg PO DAILY 07/02/19 07/02/19 History atorvastatin 40 mg PO HS 07/02/19 07/02/19 History levothyroxine 150 mcg PO DAILY 07/02/19 07/02/19 History metformin 500 mg PO BIDM 07/02/19 07/02/19 History sertraline 50 mg PO DAILY 07/02/19 07/02/19 History Patient History Medical History History of TIA (transient ischemic attack) Depression Hypothyroidism HLD (hyperlipidemia) HTN (hypertension) Diabetes Surgical History History of hernia surgery Hx of eye surgery Family History Mother Dementia CHF (congestive heart failure) Father Diabetes Social History Preferred Language: Mauritian Communication Ability: Effective Communication Ability Comment: very hard of hearing Hearing Ability: 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 Beliefs That Will Affect Care: None marital status: Current Living Situation: Spouse current occupational status: disabled Other Information That Helps Us Care for You: No Feels Safe at Home: Yes Safety Concerns: Feels Safe At This Time Smoking Status: Current every day smoker Tobacco Type: smokeless tobacco ; Hx Alcohol Use: No Hx Substance Use: Yes substance use type: other Substance Use Type Other:: overdose Last Used Substance: Just Prior to Arrival Review of Systems Review of Systems: All systems reviewed & are unremarkable except as noted in HPI & below Constitutional: + weakness (generalized) Ear, Nose, Mouth, Throat: + hearing loss (chronic and per pt at baseline) Respiratory: + dyspnea on exertion (chronic per pt) Cardiovascular: no chest pain Psychiatric: + depression Physical Exam Constitutional: well developed and well nourished on 02NC, very hard of hearing which limits interview; struggles to maneuver for exam but does; cough Eyes: EOM intact bilaterally ENMT: Ears: no external ear abnormality Nose: no external nose abnormality Mouth: + dry oral mucous membranes Neck: no nuchal rigidity Respiratory: normal respiratory effort Auscultation: + diminished lung sounds Cardiovascular: RRR, no murmur, no edema (HS distant) Gastrointestinal (Abdomen): Inspection/Auscultation: normal bowel sounds Percussion/Palpation: abdomen soft; abdomen nontender Musculoskeletal: Extremities: strength 5/5 throughout Skin: no rashes, warm and dry Neurologic: hu, fluent speech, no tremor Genitourinary: zazueta present w/ ample urine Results & Data Vital Signs (Past 12 Hours) Vital Signs Temp Pulse Resp BP Pulse Ox 07/03/19 15:29 87 07/03/19 13:00 89 19 106/63 95 07/03/19 12:00 36.6 C 84 26 H 125/67 96 07/03/19 11:00 83 21 128/61 92 07/03/19 10:00 99 H 20 110/65 94 07/03/19 09:00 93 H 20 104/63 97 07/03/19 08:00 36.6 C 92 H 22 134/62 07/03/19 07:00 97 H 21 141/65 H 95 07/03/19 06:00 98 H 18 106/58 L 100 07/03/19 05:00 102 H 18 99/67 L 100 07/03/19 04:00 36.7 C 102 H 21 122/72 94 Laboratory Results Abnormal lab results 07/02/19 07/02/19 07/02/19 Range/Units 16:33 16:33 16:34 WBC (4.8-10.8) K/uL RBC (4.7-6.1) M/uL Hgb (14.0-18.0) g/dL Hct (42-52) % Immature Gran # (Auto) (0.00-0.02) K/uL Neut # (Auto) (1.4-6.5) K/uL Pine # (Auto) (0.11-0.59) K/uL PT (9.0-12.0) Seconds INR (0.9-1.1) ABG pH (7.35-7.45) ABG pCO2 (35-46) mmHg ABG HCO3 (19-24) mmol/L ABG O2 Saturation (90-95) % VBG pH 7.49 H (7.36-7.41) VBG pCO2 23 L (38-50) mmHg Potassium (3.5-5.1) mmol/L Chloride 120 H (98-107) mmol/L Carbon Dioxide 15 L (21-32) mmol/L Anion Gap (3-11) BUN 21 H (7-18) mg/dl Creatinine (0.6-1.4) mg/dl Glucose 138 H (70-99) mg/dl POC Glucose (70-99) Calcium (8.5-10.1) mg/dl Albumin (3.4-5.0) gm/dl Albumin/Globulin Ratio (0.9-2) Urine Protein (Negative) Urine Glucose (UA) (Negative) Urine Ketones (Negative) Urine WBC (Auto) (0-5) /hpf U Epithel Cells (Auto) (0-5) /lpf Salicylates 77.4 H* (2.8-20) mg/dl 07/02/19 07/02/19 07/02/19 Range/Units 17:07 18:58 18:58 WBC (4.8-10.8) K/uL RBC (4.7-6.1) M/uL Hgb (14.0-18.0) g/dL Hct (42-52) % Immature Gran # (Auto) (0.00-0.02) K/uL Neut # (Auto) (1.4-6.5) K/uL Pine # (Auto) (0.11-0.59) K/uL PT (9.0-12.0) Seconds INR (0.9-1.1) ABG pH 7.53 H* (7.35-7.45) ABG pCO2 22 L (35-46) mmHg ABG HCO3 18 L (19-24) mmol/L ABG O2 Saturation 97.9 H (90-95) % VBG pH (7.36-7.41) VBG pCO2 (38-50) mmHg Potassium (3.5-5.1) mmol/L Chloride (98-107) mmol/L Carbon Dioxide (21-32) mmol/L Anion Gap (3-11) BUN (7-18) mg/dl Creatinine (0.6-1.4) mg/dl Glucose (70-99) mg/dl POC Glucose 130 H (70-99) Calcium (8.5-10.1) mg/dl Albumin (3.4-5.0) gm/dl Albumin/Globulin Ratio (0.9-2) Urine Protein (Negative) Urine Glucose (UA) (Negative) Urine Ketones (Negative) Urine WBC (Auto) (0-5) /hpf U Epithel Cells (Auto) (0-5) /lpf Salicylates 82.9 H* (2.8-20) mg/dl 07/02/19 07/02/19 07/02/19 Range/Units 20:39 20:50 21:53 WBC (4.8-10.8) K/uL RBC (4.7-6.1) M/uL Hgb (14.0-18.0) g/dL Hct (42-52) % Immature Gran # (Auto) (0.00-0.02) K/uL Neut # (Auto) (1.4-6.5) K/uL Pine # (Auto) (0.11-0.59) K/uL PT (9.0-12.0) Seconds INR (0.9-1.1) ABG pH (7.35-7.45) ABG pCO2 (35-46) mmHg ABG HCO3 (19-24) mmol/L ABG O2 Saturation (90-95) % VBG pH (7.36-7.41) VBG pCO2 (38-50) mmHg Potassium (3.5-5.1) mmol/L Chloride 119 H (98-107) mmol/L Carbon Dioxide 19 L (21-32) mmol/L Anion Gap 2.0 L (3-11) BUN 21 H (7-18) mg/dl Creatinine (0.6-1.4) mg/dl Glucose 144 H (70-99) mg/dl POC Glucose 138 H (70-99) Calcium 8.3 L (8.5-10.1) mg/dl Albumin (3.4-5.0) gm/dl Albumin/Globulin Ratio (0.9-2) Urine Protein 1+ H (Negative) Urine Glucose (UA) Trace H (Negative) Urine Ketones 2+ H (Negative) Urine WBC (Auto) 10-30 H (0-5) /hpf U Epithel Cells (Auto) >30 H (0-5) /lpf Salicylates (2.8-20) mg/dl 07/02/19 07/02/19 07/02/19 Range/Units 21:54 21:54 22:52 WBC (4.8-10.8) K/uL RBC (4.7-6.1) M/uL Hgb (14.0-18.0) g/dL Hct (42-52) % Immature Gran # (Auto) (0.00-0.02) K/uL Neut # (Auto) (1.4-6.5) K/uL Pine # (Auto) (0.11-0.59) K/uL PT (9.0-12.0) Seconds INR (0.9-1.1) ABG pH (7.35-7.45) ABG pCO2 (35-46) mmHg ABG HCO3 (19-24) mmol/L ABG O2 Saturation (90-95) % VBG pH 7.54 H (7.36-7.41) VBG pCO2 22 L (38-50) mmHg Potassium (3.5-5.1) mmol/L Chloride (98-107) mmol/L Carbon Dioxide (21-32) mmol/L Anion Gap (3-11) BUN (7-18) mg/dl Creatinine (0.6-1.4) mg/dl Glucose (70-99) mg/dl POC Glucose (70-99) Calcium (8.5-10.1) mg/dl Albumin (3.4-5.0) gm/dl Albumin/Globulin Ratio (0.9-2) Urine Protein (Negative) Urine Glucose (UA) (Negative) Urine Ketones (Negative) Urine WBC (Auto) (0-5) /hpf U Epithel Cells (Auto) (0-5) /lpf Salicylates 83.2 H* 81.7 H* (2.8-20) mg/dl 07/02/19 07/03/19 07/03/19 Range/Units 23:38 01:04 01:04 WBC (4.8-10.8) K/uL RBC (4.7-6.1) M/uL Hgb (14.0-18.0) g/dL Hct (42-52) % Immature Gran # (Auto) (0.00-0.02) K/uL Neut # (Auto) (1.4-6.5) K/uL Pine # (Auto) (0.11-0.59) K/uL PT (9.0-12.0) Seconds INR (0.9-1.1) ABG pH (7.35-7.45) ABG pCO2 (35-46) mmHg ABG HCO3 (19-24) mmol/L ABG O2 Saturation (90-95) % VBG pH 7.60 H 7.54 H (7.36-7.41) VBG pCO2 23 L 31 L (38-50) mmHg Potassium (3.5-5.1) mmol/L Chloride (98-107) mmol/L Carbon Dioxide (21-32) mmol/L Anion Gap (3-11) BUN (7-18) mg/dl Creatinine (0.6-1.4) mg/dl Glucose (70-99) mg/dl POC Glucose (70-99) Calcium (8.5-10.1) mg/dl Albumin (3.4-5.0) gm/dl Albumin/Globulin Ratio (0.9-2) Urine Protein (Negative) Urine Glucose (UA) (Negative) Urine Ketones (Negative) Urine WBC (Auto) (0-5) /hpf U Epithel Cells (Auto) (0-5) /lpf Salicylates 73.5 H* (2.8-20) mg/dl 07/03/19 07/03/19 07/03/19 Range/Units 01:04 03:02 03:02 WBC (4.8-10.8) K/uL RBC (4.7-6.1) M/uL Hgb (14.0-18.0) g/dL Hct (42-52) % Immature Gran # (Auto) (0.00-0.02) K/uL Neut # (Auto) (1.4-6.5) K/uL Pine # (Auto) (0.11-0.59) K/uL PT (9.0-12.0) Seconds INR (0.9-1.1) ABG pH (7.35-7.45) ABG pCO2 (35-46) mmHg ABG HCO3 (19-24) mmol/L ABG O2 Saturation (90-95) % VBG pH 7.56 H (7.36-7.41) VBG pCO2 29 L (38-50) mmHg Potassium (3.5-5.1) mmol/L Chloride 115 H (98-107) mmol/L Carbon Dioxide (21-32) mmol/L Anion Gap (3-11) BUN 20 H (7-18) mg/dl Creatinine 1.42 H (0.6-1.4) mg/dl Glucose 124 H (70-99) mg/dl POC Glucose (70-99) Calcium 8.0 L (8.5-10.1) mg/dl Albumin (3.4-5.0) gm/dl Albumin/Globulin Ratio (0.9-2) Urine Protein (Negative) Urine Glucose (UA) (Negative) Urine Ketones (Negative) Urine WBC (Auto) (0-5) /hpf U Epithel Cells (Auto) (0-5) /lpf Salicylates 68.1 H* (2.8-20) mg/dl 07/03/19 07/03/19 07/03/19 Range/Units 05:17 05:17 05:17 WBC 15.45 H (4.8-10.8) K/uL RBC 4.42 L (4.7-6.1) M/uL Hgb 13.5 L (14.0-18.0) g/dL Hct 39.3 L (42-52) % Immature Gran # (Auto) 0.04 H (0.00-0.02) K/uL Neut # (Auto) 12.16 H (1.4-6.5) K/uL Pine # (Auto) 1.15 H (0.11-0.59) K/uL PT (9.0-12.0) Seconds INR (0.9-1.1) ABG pH (7.35-7.45) ABG pCO2 (35-46) mmHg ABG HCO3 (19-24) mmol/L ABG O2 Saturation (90-95) % VBG pH (7.36-7.41) VBG pCO2 (38-50) mmHg Potassium 3.3 L (3.5-5.1) mmol/L Chloride 113 H (98-107) mmol/L Carbon Dioxide (21-32) mmol/L Anion Gap (3-11) BUN 20 H (7-18) mg/dl Creatinine (0.6-1.4) mg/dl Glucose 114 H (70-99) mg/dl POC Glucose (70-99) Calcium 7.8 L (8.5-10.1) mg/dl Albumin 2.9 L (3.4-5.0) gm/dl Albumin/Globulin Ratio 0.8 L (0.9-2) Urine Protein (Negative) Urine Glucose (UA) (Negative) Urine Ketones (Negative) Urine WBC (Auto) (0-5) /hpf U Epithel Cells (Auto) (0-5) /lpf Salicylates 62.0 H* (2.8-20) mg/dl 07/03/19 07/03/19 07/03/19 Range/Units 05:17 07:09 07:10 WBC (4.8-10.8) K/uL RBC (4.7-6.1) M/uL Hgb (14.0-18.0) g/dL Hct (42-52) % Immature Gran # (Auto) (0.00-0.02) K/uL Neut # (Auto) (1.4-6.5) K/uL Pine # (Auto) (0.11-0.59) K/uL PT (9.0-12.0) Seconds INR (0.9-1.1) ABG pH (7.35-7.45) ABG pCO2 (35-46) mmHg ABG HCO3 (19-24) mmol/L ABG O2 Saturation (90-95) % VBG pH 7.53 H 7.57 H (7.36-7.41) VBG pCO2 29 L 29 L (38-50) mmHg Potassium (3.5-5.1) mmol/L Chloride (98-107) mmol/L Carbon Dioxide (21-32) mmol/L Anion Gap (3-11) BUN (7-18) mg/dl Creatinine (0.6-1.4) mg/dl Glucose (70-99) mg/dl POC Glucose (70-99) Calcium (8.5-10.1) mg/dl Albumin (3.4-5.0) gm/dl Albumin/Globulin Ratio (0.9-2) Urine Protein (Negative) Urine Glucose (UA) (Negative) Urine Ketones (Negative) Urine WBC (Auto) (0-5) /hpf U Epithel Cells (Auto) (0-5) /lpf Salicylates 59.6 H* (2.8-20) mg/dl 07/03/19 07/03/19 07/03/19 Range/Units 09:09 09:09 09:09 WBC (4.8-10.8) K/uL RBC (4.7-6.1) M/uL Hgb (14.0-18.0) g/dL Hct (42-52) % Immature Gran # (Auto) (0.00-0.02) K/uL Neut # (Auto) (1.4-6.5) K/uL Pine # (Auto) (0.11-0.59) K/uL PT (9.0-12.0) Seconds INR (0.9-1.1) ABG pH (7.35-7.45) ABG pCO2 (35-46) mmHg ABG HCO3 (19-24) mmol/L ABG O2 Saturation (90-95) % VBG pH 7.55 H (7.36-7.41) VBG pCO2 32 L (38-50) mmHg Potassium 3.2 L (3.5-5.1) mmol/L Chloride 115 H (98-107) mmol/L Carbon Dioxide (21-32) mmol/L Anion Gap (3-11) BUN 21 H (7-18) mg/dl Creatinine 1.49 H (0.6-1.4) mg/dl Glucose 126 H (70-99) mg/dl POC Glucose (70-99) Calcium 8.1 L (8.5-10.1) mg/dl Albumin (3.4-5.0) gm/dl Albumin/Globulin Ratio (0.9-2) Urine Protein (Negative) Urine Glucose (UA) (Negative) Urine Ketones (Negative) Urine WBC (Auto) (0-5) /hpf U Epithel Cells (Auto) (0-5) /lpf Salicylates 53.6 H* (2.8-20) mg/dl 07/03/19 07/03/19 07/03/19 Range/Units 10:57 13:01 13:39 WBC (4.8-10.8) K/uL RBC (4.7-6.1) M/uL Hgb (14.0-18.0) g/dL Hct (42-52) % Immature Gran # (Auto) (0.00-0.02) K/uL Neut # (Auto) (1.4-6.5) K/uL Pine # (Auto) (0.11-0.59) K/uL PT 20.7 H (9.0-12.0) Seconds INR 2.1 H (0.9-1.1) ABG pH (7.35-7.45) ABG pCO2 (35-46) mmHg ABG HCO3 (19-24) mmol/L ABG O2 Saturation (90-95) % VBG pH 7.51 H (7.36-7.41) VBG pCO2 34 L (38-50) mmHg Potassium 3.3 L (3.5-5.1) mmol/L Chloride 113 H (98-107) mmol/L Carbon Dioxide (21-32) mmol/L Anion Gap (3-11) BUN 23 H (7-18) mg/dl Creatinine 1.52 H (0.6-1.4) mg/dl Glucose 116 H (70-99) mg/dl POC Glucose (70-99) Calcium 7.9 L (8.5-10.1) mg/dl Albumin (3.4-5.0) gm/dl Albumin/Globulin Ratio (0.9-2) Urine Protein (Negative) Urine Glucose (UA) (Negative) Urine Ketones (Negative) Urine WBC (Auto) (0-5) /hpf U Epithel Cells (Auto) (0-5) /lpf Salicylates (2.8-20) mg/dl 07/03/19 07/03/19 Range/Units 15:11 15:44 WBC (4.8-10.8) K/uL RBC (4.7-6.1) M/uL Hgb (14.0-18.0) g/dL Hct (42-52) % Immature Gran # (Auto) (0.00-0.02) K/uL Neut # (Auto) (1.4-6.5) K/uL Pine # (Auto) (0.11-0.59) K/uL PT (9.0-12.0) Seconds INR (0.9-1.1) ABG pH (7.35-7.45) ABG pCO2 (35-46) mmHg ABG HCO3 (19-24) mmol/L ABG O2 Saturation (90-95) % VBG pH (7.36-7.41) VBG pCO2 (38-50) mmHg Potassium 3.1 L (3.5-5.1) mmol/L Chloride 112 H (98-107) mmol/L Carbon Dioxide (21-32) mmol/L Anion Gap 1.0 L (3-11) BUN 24 H (7-18) mg/dl Creatinine 1.46 H (0.6-1.4) mg/dl Glucose 101 H (70-99) mg/dl POC Glucose (70-99) Calcium 7.9 L (8.5-10.1) mg/dl Albumin (3.4-5.0) gm/dl Albumin/Globulin Ratio (0.9-2) Urine Protein (Negative) Urine Glucose (UA) (Negative) Urine Ketones (Negative) Urine WBC (Auto) (0-5) /hpf U Epithel Cells (Auto) (0-5) /lpf Salicylates 44.6 H* (2.8-20) mg/dl 07/03/19 05:17 07/03/19 15:44 Diagnostic Findings no CXR, no head CT (1) Acute renal failure Acute renal failure type: unspecified Qualified Code(s): N17.9 - Acute kidney failure, unspecified (2) Aspirin overdose Encounter type: initial encounter Injury intent: intentional self-harm Qualified Code(s): T39.012A - Poisoning by aspirin, intentional self-harm, initial encounter
[2019-07-03] MEDS ORDERED: POTASSIUM CHLORIDE 20 MEQ TABCR PO ONE (16:15)
[2019-07-03 16:19] LABS: BUN Creatinine Ratio 16.2 (10-20); Calcium 7.9 mg/dl (8.5-10.1); Est GFR (African American) 60.2; Est GFR (Non-African American) 51.9; Potassium 3.1 mmol/L (3.5-5.1)
[2019-07-03 17:32] LABS: Base Excess VBG 3.1 mEq/L; Oxygen Saturation VBG 86.6 %; pH VBG 7.51 (7.36-7.41)
[2019-07-03 17:41] LABS: Calcium 7.7 mg/dl (8.5-10.1); Creatinine Clr Calc Pharmacy 78.3 ml/min; Est GFR (African American) 64.4; Est GFR (Non-African American) 55.6
--- NOTE | 2019-07-03 18:02 | XRay Report ---
XR chest 1V portable CLINICAL HISTORY: ff up COMPARISON STUDY: No previous studies for comparison. FINDINGS: Lung volumes are diminished. There is no pneumothorax or pleural effusion. There is no evid ence for pulmonary edema. No consolidation to suggest pneumonia. Moderate enlargement of the cardiac silhouette is noted. A 9 mm nodular left upper lung density is noted. IMPRESSION: 1. No acute cardiopulmonary findings. 2. 9 mm nodular left upper lung density. This may reflect artifact or a low suspicion rib lesion farias radha a pulmonary nodule could appear similar. PA and shallow oblique radiographs of the chest are yessica mmended. 3. Cardiomegaly. Electronically signed by: Chito Delgado M.D. 07/03/2019 6:01 PM
[2019-07-03 20:03] LABS: Base Excess VBG 3.7 mEq/L; Oxygen Saturation VBG 85.9 %; pH VBG 7.52 (7.36-7.41)
--- NOTE | 2019-07-03 20:12 | Hospitalist Progress Note ---
Date of Service July 03, 2019 Assessment & Plan (1) Suicide attempt by drug ingestion: 1) Suicide attempt by drug ingestion: (2) Aspirin overdose: (3) Overdose of metformin: per admitting service notes: This is a 58-year-old male who has significant past medical history of T2DM, HTN, HLD, hypothyroidism, depression who presents to [facility] after intentional overdose on ASA and metformin. Pt is believed to have taken 1/2 bottle of ASA (unknown if enteric coated) and approx 10 tabs of metformin Salicylate level 77 on admission Poison control contacted - recommend start bicarb gtt, repeat salicylate level at 4pm -- Clerk General Office consulted, appreciate the recommendations Poison Control Center recommendations also noted -- Salicylate level q2h, goal is < 40 x 2 readings, then q6h VBG level q2h, goal pH 7.5-7.6, if not may need to increase HCO3 drip (please call Clerk General Office) -- Psych consulted: will need inpatient Psych treatment once medically stable Hypokalemia PO K give repeat at 9pm Acute Renal Failure BMP q4h on IV fluids (4) Diabetes: Last A1C 5.8 in 05/2019 no prior records to review as pt recently established with [facility] -- presents with Metformin overdose -- monitor BSGs (5) HTN (hypertension): blood pressure elevated in ED - likely in setting of OD Continue atenolol monitor BP (6) HLD (hyperlipidemia): on atorvastatin (7) Hypothyroidism: continue levothyroxine TSH mildly elevated 5.47 TSH checked in outpt setting 05/2019 4.78 will need repeat as outpt in 4-6 weeks (8) Depression: continue zoloft psych consulted given intentional OD suicide precautions (9) History of TIA (transient ischemic attack): per [facility] records on ASA and statin as outpt (10) DVT prophylaxis: SCD/TEDS avoid chemical prophylaxis in setting of ASA overdose Disposition: transfer to inpatient Psych unit when medically stable Follow up: PCP Dr. Hong upon discharge Subjective ff up for intentional ASA, Metformin overdose resting in bed, sleeping but easily awakened pleasant, calm oriented, answers all questions appropriately states he feels fine overall denies headache, dizziness, chest pain, dyspnea, palpitations, dizziness, abdominal pain, nausea/vomiting denies bleeding no other symptoms Review of Systems Review of Systems: All systems reviewed & are unremarkable except as noted in HPI & below Physical Exam Physical Exam: General- oriented x 3, not in distress, speaks in sentences with no effort or accessory muscle use Head- atraumatic Eyes- PERRL, EOMI, anicteric ENT- oropharynx clear Neck- supple, no JVD, no adenopathy, no thyromegaly; carotids +2/2, no bruits appreciated Lungs- clear to auscultation bilaterally, no rales/wheezes Heart- normal rate, regular rhythm; no murmur, no gallop, no rub appreciated Abdomen- normal bowel sounds, nondistended, soft, nontender, no masses or hepatosplenomegaly Extremities- no pretibial edema, no calf tenderness; peripheral pulses intact Neuro- alert, oriented x 3; CN 2-12 grossly intact; motor 5/5 bilaterally;sensation 100% on all extremities; no other gross focal neurologic deficits Skin- warm & dry psych- calm, cooperative Results & Data Vital Signs (Past 12 Hours) Vital Signs Temp Pulse Pulse Resp BP BP Pulse Ox 07/03/19 19:37 36.8 C 79 16 138/70 96 07/03/19 15:29 87 07/03/19 15:00 37.0 C 86 19 113/59 L 93 07/03/19 13:00 89 19 106/63 95 07/03/19 12:00 36.6 C 84 26 H 125/67 96 07/03/19 11:00 83 21 128/61 92 07/03/19 10:00 99 H 20 110/65 94 07/03/19 09:00 93 H 20 104/63 97 Laboratory Results Laboratory Results - last 24 hr 07/02/19 07/02/19 07/02/19 20:39 20:39 20:50 WBC RBC Hgb Hct MCV MCH MCHC RDW Std Deviation RDW Coeff of Enedelia Plt Count MPV Immature Gran % (Auto) Neut % (Auto) Lymph % (Auto) [place] % (Auto) Eos % (Auto) Baso % (Auto) Immature Gran # (Auto) Neut # (Auto) Lymph # (Auto) [place] # (Auto) Eos # (Auto) Baso # (Auto) PT INR VBG pH VBG pCO2 VBG pO2 VBG HCO3 VBG O2 Saturation VBG Base Excess Barometric Pressure Sodium Potassium Chloride Carbon Dioxide Anion Gap BUN Creatinine Est Cr Clr Drug Dosing Est GFR ( Amer) Est GFR (Non-Af Amer) BUN/Creatinine Ratio Glucose POC Glucose 138 H Lactate Calcium Magnesium Total Bilirubin AST ALT Alkaline Phosphatase Total Protein Albumin Globulin Albumin/Globulin Ratio Specimen Hemolysis Urine Color Yellow Urine Appearance Clear Urine pH 6.0 Ur Specific [place] 1.022 Urine Protein 1+ H Urine Glucose (UA) Trace H Urine Ketones 2+ H Urine Blood Negative Urine Nitrite Negative Urine Bilirubin Negative Urine Urobilinogen Negative Ur Leukocyte Esterase Negative Urine WBC (Auto) 10-30 H Urine RBC (Auto) 0-4 U Hyaline Cast (Auto) 1-5 U Epithel Cells (Auto) >30 H Urine Bacteria (Auto) Negative Ur Renal Epithelial Cell Not Reportable Nasal Screen MRSA (PCR) Salicylates Urine Opiates Screen Neg Ur Methadone, Qual Neg Urine Barbiturates Neg Ur Phencyclidine (PCP) Neg U Amphetamin/Meth Scrn Neg MDMA (Ecstasy) Screen Neg U Benzodiazepines Scrn Neg Ur Cocaine Metabolite Neg U Marijuana (THC) Screen Neg 07/02/19 07/02/19 07/02/19 21:53 21:54 21:54 WBC RBC Hgb Hct MCV MCH MCHC RDW Std Deviation RDW Coeff of Enedelia Plt Count MPV Immature Gran % (Auto) Neut % (Auto) Lymph % (Auto) [place] % (Auto) Eos % (Auto) Baso % (Auto) Immature Gran # (Auto) Neut # (Auto) Lymph # (Auto) [place] # (Auto) Eos # (Auto) Baso # (Auto) PT INR VBG pH VBG pCO2 VBG pO2 VBG HCO3 VBG O2 Saturation VBG Base Excess Barometric Pressure Sodium 140 Potassium 3.6 Chloride 119 H Carbon Dioxide 19 L Anion Gap 2.0 L BUN 21 H Creatinine 1.37 Est Cr Clr Drug Dosing 81.0 Est GFR ( Amer) 65.0 Est GFR (Non-Af Amer) 56.1 BUN/Creatinine Ratio 15.3 Glucose 144 H POC Glucose Lactate 1.1 Calcium 8.3 L Magnesium Total Bilirubin AST ALT Alkaline Phosphatase Total Protein Albumin Globulin Albumin/Globulin Ratio Specimen Hemolysis Urine Color Urine Appearance Urine pH Ur Specific [place] Urine Protein Urine Glucose (UA) Urine Ketones Urine Blood Urine Nitrite Urine Bilirubin Urine Urobilinogen Ur Leukocyte Esterase Urine WBC (Auto) Urine RBC (Auto) U Hyaline Cast (Auto) U Epithel Cells (Auto) Urine Bacteria (Auto) Ur Renal Epithelial Cell Nasal Screen MRSA (PCR) Salicylates 83.2 H* Urine Opiates Screen Ur Methadone, Qual Urine Barbiturates Ur Phencyclidine (PCP) U Amphetamin/Meth Scrn MDMA (Ecstasy) Screen U Benzodiazepines Scrn Ur Cocaine Metabolite U Marijuana (THC) Screen 07/02/19 07/02/19 07/02/19 21:54 22:52 23:36 WBC RBC Hgb Hct MCV MCH MCHC RDW Std Deviation RDW Coeff of Enedelia Plt Count MPV Immature Gran % (Auto) Neut % (Auto) Lymph % (Auto) [place] % (Auto) Eos % (Auto) Baso % (Auto) Immature Gran # (Auto) Neut # (Auto) Lymph # (Auto) [place] # (Auto) Eos # (Auto) Baso # (Auto) PT INR VBG pH 7.54 H VBG pCO2 22 L VBG pO2 67 VBG HCO3 18 VBG O2 Saturation 95.2 VBG Base Excess -1.7 Barometric Pressure 736.1 Sodium Potassium Chloride Carbon Dioxide Anion Gap BUN Creatinine Est Cr Clr Drug Dosing Est GFR ( Amer) Est GFR (Non-Af Amer) BUN/Creatinine Ratio Glucose POC Glucose Lactate Calcium Magnesium Total Bilirubin AST ALT Alkaline Phosphatase Total Protein Albumin Globulin Albumin/Globulin Ratio Specimen Hemolysis Urine Color Urine Appearance Urine pH Ur Specific [place] Urine Protein Urine Glucose (UA) Urine Ketones Urine Blood Urine Nitrite Urine Bilirubin Urine Urobilinogen Ur Leukocyte Esterase Urine WBC (Auto) Urine RBC (Auto) U Hyaline Cast (Auto) U Epithel Cells (Auto) Urine Bacteria (Auto) Ur Renal Epithelial Cell Nasal Screen MRSA (PCR) Negative Salicylates 81.7 H* Urine Opiates Screen Ur Methadone, Qual Urine Barbiturates Ur Phencyclidine (PCP) U Amphetamin/Meth Scrn MDMA (Ecstasy) Screen U Benzodiazepines Scrn Ur Cocaine Metabolite U Marijuana (THC) Screen 07/02/19 07/03/19 07/03/19 23:38 01:04 01:04 WBC RBC Hgb Hct MCV MCH MCHC RDW Std Deviation RDW Coeff of Enedelia Plt Count MPV Immature Gran % (Auto) Neut % (Auto) Lymph % (Auto) [place] % (Auto) Eos % (Auto) Baso % (Auto) Immature Gran # (Auto) Neut # (Auto) Lymph # (Auto) [place] # (Auto) Eos # (Auto) Baso # (Auto) PT INR VBG pH 7.60 H 7.54 H VBG pCO2 23 L 31 L VBG pO2 62 25 VBG HCO3 22 26 VBG O2 Saturation 94.4 < 60.0 VBG Base Excess 2.5 4.1 Barometric Pressure 736.6 736.9 Sodium Potassium Chloride Carbon Dioxide Anion Gap BUN Creatinine Est Cr Clr Drug Dosing Est GFR ( Amer) Est GFR (Non-Af Amer) BUN/Creatinine Ratio Glucose POC Glucose Lactate Calcium Magnesium Total Bilirubin AST ALT Alkaline Phosphatase Total Protein Albumin Globulin Albumin/Globulin Ratio Specimen Hemolysis Urine Color Urine Appearance Urine pH Ur Specific [place] Urine Protein Urine Glucose (UA) Urine Ketones Urine Blood Urine Nitrite Urine Bilirubin Urine Urobilinogen Ur Leukocyte Esterase Urine WBC (Auto) Urine RBC (Auto) U Hyaline Cast (Auto) U Epithel Cells (Auto) Urine Bacteria (Auto) Ur Renal Epithelial Cell Nasal Screen MRSA (PCR) Salicylates 73.5 H* Urine Opiates Screen Ur Methadone, Qual Urine Barbiturates Ur Phencyclidine (PCP) U Amphetamin/Meth Scrn MDMA (Ecstasy) Screen U Benzodiazepines Scrn Ur Cocaine Metabolite U Marijuana (THC) Screen 07/03/19 07/03/19 07/03/19 01:04 01:04 03:02 WBC RBC Hgb Hct MCV MCH MCHC RDW Std Deviation RDW Coeff of Enedelia Plt Count MPV Immature Gran % (Auto) Neut % (Auto) Lymph % (Auto) [place] % (Auto) Eos % (Auto) Baso % (Auto) Immature Gran # (Auto) Neut # (Auto) Lymph # (Auto) [place] # (Auto) Eos # (Auto) Baso # (Auto) PT INR VBG pH VBG pCO2 VBG pO2 VBG HCO3 VBG O2 Saturation VBG Base Excess Barometric Pressure Sodium 142 Potassium 3.5 Chloride 115 H Carbon Dioxide 22 Anion Gap 5.0 BUN 20 H Creatinine 1.42 H Est Cr Clr Drug Dosing 78.2 Est GFR ( Amer) 62.2 Est GFR (Non-Af Amer) 53.7 BUN/Creatinine Ratio 14.3 Glucose 124 H POC Glucose Lactate 0.7 Calcium 8.0 L Magnesium Total Bilirubin AST ALT Alkaline Phosphatase Total Protein Albumin Globulin Albumin/Globulin Ratio Specimen Hemolysis Urine Color Urine Appearance Urine pH Ur Specific [place] Urine Protein Urine Glucose (UA) Urine Ketones Urine Blood Urine Nitrite Urine Bilirubin Urine Urobilinogen Ur Leukocyte Esterase Urine WBC (Auto) Urine RBC (Auto) U Hyaline Cast (Auto) U Epithel Cells (Auto) Urine Bacteria (Auto) Ur Renal Epithelial Cell Nasal Screen MRSA (PCR) Salicylates 68.1 H* Urine Opiates Screen Ur Methadone, Qual Urine Barbiturates Ur Phencyclidine (PCP) U Amphetamin/Meth Scrn MDMA (Ecstasy) Screen U Benzodiazepines Scrn Ur Cocaine Metabolite U Marijuana (THC) Screen 07/03/19 07/03/19 07/03/19 03:02 04:25 05:17 WBC 15.45 H RBC 4.42 L Hgb 13.5 L Hct 39.3 L MCV 88.9 MCH 30.5 MCHC 34.4 RDW Std Deviation 45.2 RDW Coeff of Enedelia 13.9 Plt Count 232 MPV 10.4 Immature Gran % (Auto) 0.3 Neut % (Auto) 78.8 Lymph % (Auto) 13.3 [place] % (Auto) 7.4 Eos % (Auto) 0.1 Baso % (Auto) 0.1 Immature Gran # (Auto) 0.04 H Neut # (Auto) 12.16 H Lymph # (Auto) 2.06 [place] # (Auto) 1.15 H Eos # (Auto) 0.02 Baso # (Auto) 0.02 PT INR VBG pH 7.56 H VBG pCO2 29 L VBG pO2 45 VBG HCO3 25 VBG O2 Saturation 85.0 VBG Base Excess 3.8 Barometric Pressure 736.9 Sodium Potassium Chloride Carbon Dioxide Anion Gap BUN Creatinine Est Cr Clr Drug Dosing Est GFR ( Amer) Est GFR (Non-Af Amer) BUN/Creatinine Ratio Glucose POC Glucose Lactate Calcium Magnesium Total Bilirubin AST ALT Alkaline Phosphatase Total Protein Albumin Globulin Albumin/Globulin Ratio Specimen Hemolysis Urine Color Urine Appearance Urine pH 7.0 Ur Specific [place] Urine Protein Urine Glucose (UA) Urine Ketones Urine Blood Urine Nitrite Urine Bilirubin Urine Urobilinogen Ur Leukocyte Esterase Urine WBC (Auto) Urine RBC (Auto) U Hyaline Cast (Auto) U Epithel Cells (Auto) Urine Bacteria (Auto) Ur Renal Epithelial Cell Nasal Screen MRSA (PCR) Salicylates Urine Opiates Screen Ur Methadone, Qual Urine Barbiturates Ur Phencyclidine (PCP) U Amphetamin/Meth Scrn MDMA (Ecstasy) Screen U Benzodiazepines Scrn Ur Cocaine Metabolite U Marijuana (THC) Screen 07/03/19 07/03/19 07/03/19 05:17 05:17 05:17 WBC RBC Hgb Hct MCV MCH MCHC RDW Std Deviation RDW Coeff of Enedelia Plt Count MPV Immature Gran % (Auto) Neut % (Auto) Lymph % (Auto) [place] % (Auto) Eos % (Auto) Baso % (Auto) Immature Gran # (Auto) Neut # (Auto) Lymph # (Auto) [place] # (Auto) Eos # (Auto) Baso # (Auto) PT INR VBG pH 7.53 H VBG pCO2 29 L VBG pO2 54 VBG HCO3 23 VBG O2 Saturation 89.9 VBG Base Excess 1.5 Barometric Pressure 738.0 Sodium 140 Potassium 3.3 L Chloride 113 H Carbon Dioxide 24 Anion Gap 3.0 BUN 20 H Creatinine 1.37 Est Cr Clr Drug Dosing 81.0 Est GFR ( Amer) 65.0 Est GFR (Non-Af Amer) 56.1 BUN/Creatinine Ratio 14.6 Glucose 114 H POC Glucose Lactate Calcium 7.8 L Magnesium 2.2 Total Bilirubin 0.4 AST 18 ALT 23 Alkaline Phosphatase 64 Total Protein 6.6 D Albumin 2.9 L Globulin 3.7 Albumin/Globulin Ratio 0.8 L Specimen Hemolysis Urine Color Urine Appearance Urine pH Ur Specific [place] Urine Protein Urine Glucose (UA) Urine Ketones Urine Blood Urine Nitrite Urine Bilirubin Urine Urobilinogen Ur Leukocyte Esterase Urine WBC (Auto) Urine RBC (Auto) U Hyaline Cast (Auto) U Epithel Cells (Auto) Urine Bacteria (Auto) Ur Renal Epithelial Cell Nasal Screen MRSA (PCR) Salicylates 62.0 H* Urine Opiates Screen Ur Methadone, Qual Urine Barbiturates Ur Phencyclidine (PCP) U Amphetamin/Meth Scrn MDMA (Ecstasy) Screen U Benzodiazepines Scrn Ur Cocaine Metabolite U Marijuana (THC) Screen 07/03/19 07/03/19 07/03/19 07:09 07:09 07:10 WBC RBC Hgb Hct MCV MCH MCHC RDW Std Deviation RDW Coeff of Enedelia Plt Count MPV Immature Gran % (Auto) Neut % (Auto) Lymph % (Auto) [place] % (Auto) Eos % (Auto) Baso % (Auto) Immature Gran # (Auto) Neut # (Auto) Lymph # (Auto) [place] # (Auto) Eos # (Auto) Baso # (Auto) PT INR VBG pH 7.57 H VBG pCO2 29 L VBG pO2 45 VBG HCO3 26 VBG O2 Saturation 84.7 VBG Base Excess 5.1 Barometric Pressure 738.3 Sodium Potassium Chloride Carbon Dioxide Anion Gap BUN Creatinine Est Cr Clr Drug Dosing Est GFR ( Amer) Est GFR (Non-Af Amer) BUN/Creatinine Ratio Glucose POC Glucose Lactate 0.7 Calcium Magnesium Total Bilirubin AST ALT Alkaline Phosphatase Total Protein Albumin Globulin Albumin/Globulin Ratio Specimen Hemolysis Urine Color Urine Appearance Urine pH Ur Specific [place] Urine Protein Urine Glucose (UA) Urine Ketones Urine Blood Urine Nitrite Urine Bilirubin Urine Urobilinogen Ur Leukocyte Esterase Urine WBC (Auto) Urine RBC (Auto) U Hyaline Cast (Auto) U Epithel Cells (Auto) Urine Bacteria (Auto) Ur Renal Epithelial Cell Nasal Screen MRSA (PCR) Salicylates 59.6 H* Urine Opiates Screen Ur Methadone, Qual Urine Barbiturates Ur Phencyclidine (PCP) U Amphetamin/Meth Scrn MDMA (Ecstasy) Screen U Benzodiazepines Scrn Ur Cocaine Metabolite U Marijuana (THC) Screen 07/03/19 07/03/19 07/03/19 09:09 09:09 09:09 WBC RBC Hgb Hct MCV MCH MCHC RDW Std Deviation RDW Coeff of [place]elia Plt Count MPV Immature Gran % (Auto) Neut % (Auto) Lymph % (Auto) [place] % (Auto) Eos % (Auto) Baso % (Auto) Immature Gran # (Auto) Neut # (Auto) Lymph # (Auto) [place] # (Auto) Eos # (Auto) Baso # (Auto) PT INR VBG pH 7.55 H VBG pCO2 32 L VBG pO2 43 VBG HCO3 27 VBG O2 Saturation 82.0 VBG Base Excess 5.4 Barometric Pressure 739.0 Sodium 143 Potassium 3.2 L Chloride 115 H Carbon Dioxide 24 Anion Gap 4.0 BUN 21 H Creatinine 1.49 H Est Cr Clr Drug Dosing 74.5 Est GFR ( Amer) 58.7 Est GFR (Non-Af Amer) 50.6 BUN/Creatinine Ratio 14.2 Glucose 126 H POC Glucose Lactate Calcium 8.1 L Magnesium Total Bilirubin AST ALT Alkaline Phosphatase Total Protein Albumin Globulin Albumin/Globulin Ratio Specimen Hemolysis Urine Color Urine Appearance Urine pH Ur Specific [place] Urine Protein Urine Glucose (UA) Urine Ketones Urine Blood Urine Nitrite Urine Bilirubin Urine Urobilinogen Ur Leukocyte Esterase Urine WBC (Auto) Urine RBC (Auto) U Hyaline Cast (Auto) U Epithel Cells (Auto) Urine Bacteria (Auto) Ur Renal Epithelial Cell Nasal Screen MRSA (PCR) Salicylates 53.6 H* Urine Opiates Screen Ur Methadone, Qual Urine Barbiturates Ur Phencyclidine (PCP) U Amphetamin/Meth Scrn MDMA (Ecstasy) Screen U Benzodiazepines Scrn Ur Cocaine Metabolite U Marijuana (THC) Screen 07/03/19 07/03/19 07/03/19 10:07 10:57 13:01 WBC RBC Hgb Hct MCV MCH MCHC RDW Std Deviation RDW Coeff of En[place]elia Plt Count MPV Immature Gran % (Auto) Neut % (Auto) Lymph % (Auto) [place] % (Auto) Eos % (Auto) Baso % (Auto) Immature Gran # (Auto) Neut # (Auto) Lymph # (Auto) [place] # (Auto) Eos # (Auto) Baso # (Auto) PT 20.7 H INR 2.1 H VBG pH VBG pCO2 VBG pO2 VBG HCO3 VBG O2 Saturation VBG Base Excess Barometric Pressure Sodium 141 Potassium 3.3 L Chloride 113 H Carbon Dioxide 25 Anion Gap 3.0 BUN 23 H Creatinine 1.52 H Est Cr Clr Drug Dosing 73.0 Est GFR ( Amer) 57.3 Est GFR (Non-Af Amer) 49.4 BUN/Creatinine Ratio 15.2 Glucose 116 H POC Glucose 95 Lactate Calcium 7.9 L Magnesium Total Bilirubin AST ALT Alkaline Phosphatase Total Protein Albumin Globulin Albumin/Globulin Ratio Specimen Hemolysis Urine Color Urine Appearance Urine pH Ur Specific [place] Urine Protein Urine Glucose (UA) Urine Ketones Urine Blood Urine Nitrite Urine Bilirubin Urine Urobilinogen Ur Leukocyte Esterase Urine WBC (Auto) Urine RBC (Auto) U Hyaline Cast (Auto) U Epithel Cells (Auto) Urine Bacteria (Auto) Ur Renal Epithelial Cell Nasal Screen MRSA (PCR) Salicylates Urine Opiates Screen Ur Methadone, Qual Urine Barbiturates Ur Phencyclidine (PCP) U Amphetamin/Meth Scrn MDMA (Ecstasy) Screen U Benzodiazepines Scrn Ur Cocaine Metabolite U Marijuana (THC) Screen 07/03/19 07/03/19 07/03/19 13:01 13:39 15:11 WBC RBC Hgb Hct MCV MCH MCHC RDW Std Deviation RDW Coeff of En[place]elia Plt Count MPV Immature Gran % (Auto) Neut % (Auto) Lymph % (Auto) [place] % (Auto) Eos % (Auto) Baso % (Auto) Immature Gran # (Auto) Neut # (Auto) Lymph # (Auto) [place] # (Auto) Eos # (Auto) Baso # (Auto) PT INR VBG pH Cancelled 7.51 H VBG pCO2 Cancelled 34 L VBG pO2 Cancelled 44 VBG HCO3 Cancelled 27 VBG O2 Saturation Cancelled 82.0 VBG Base Excess Cancelled 3.7 Barometric Pressure Cancelled 737.4 Sodium Potassium Chloride Carbon Dioxide Anion Gap BUN Creatinine Est Cr Clr Drug Dosing Est GFR ( Amer) Est GFR (Non-Af Amer) BUN/Creatinine Ratio Glucose POC Glucose Lactate Calcium Magnesium Total Bilirubin AST ALT Alkaline Phosphatase Total Protein Albumin Globulin Albumin/Globulin Ratio Specimen Hemolysis Urine Color Urine Appearance Urine pH Ur Specific [place] Urine Protein Urine Glucose (UA) Urine Ketones Urine Blood Urine Nitrite Urine Bilirubin Urine Urobilinogen Ur Leukocyte Esterase Urine WBC (Auto) Urine RBC (Auto) U Hyaline Cast (Auto) U Epithel Cells (Auto) Urine Bacteria (Auto) Ur Renal Epithelial Cell Nasal Screen MRSA (PCR) Salicylates 44.6 H* Urine Opiates Screen Ur Methadone, Qual Urine Barbiturates Ur Phencyclidine (PCP) U Amphetamin/Meth Scrn MDMA (Ecstasy) Screen U Benzodiazepines Scrn Ur Cocaine Metabolite U Marijuana (THC) Screen 07/03/19 07/03/19 07/03/19 15:44 17:16 17:16 WBC RBC Hgb Hct MCV MCH MCHC RDW Std Deviation RDW Coeff of Enedelia Plt Count MPV Immature Gran % (Auto) Neut % (Auto) Lymph % (Auto) [place] % (Auto) Eos % (Auto) Baso % (Auto) Immature Gran # (Auto) Neut # (Auto) Lymph # (Auto) [place] # (Auto) Eos # (Auto) Baso # (Auto) PT INR VBG pH VBG pCO2 VBG pO2 VBG HCO3 VBG O2 Saturation VBG Base Excess Barometric Pressure Sodium 141 141 Potassium 3.1 L 3.0 L Chloride 112 H 111 H Carbon Dioxide 28 27 Anion Gap 1.0 L 3.0 BUN 24 H 22 H Creatinine 1.46 H 1.38 Est Cr Clr Drug Dosing 74.0 78.3 Est GFR ( Amer) 60.2 64.4 Est GFR (Non-Af Amer) 51.9 55.6 BUN/Creatinine Ratio 16.2 16.0 Glucose 101 H 103 H POC Glucose Lactate Calcium 7.9 L 7.7 L Magnesium Total Bilirubin AST ALT Alkaline Phosphatase Total Protein Albumin Globulin Albumin/Globulin Ratio Specimen Hemolysis Urine Color Urine Appearance Urine pH Ur Specific [place] Urine Protein Urine Glucose (UA) Urine Ketones Urine Blood Urine Nitrite Urine Bilirubin Urine Urobilinogen Ur Leukocyte Esterase Urine WBC (Auto) Urine RBC (Auto) U Hyaline Cast (Auto) U Epithel Cells (Auto) Urine Bacteria (Auto) Ur Renal Epithelial Cell Nasal Screen MRSA (PCR) Salicylates 40.9 H* Urine Opiates Screen Ur Methadone, Qual Urine Barbiturates Ur Phencyclidine (PCP) U Amphetamin/Meth Scrn MDMA (Ecstasy) Screen U Benzodiazepines Scrn Ur Cocaine Metabolite U Marijuana (THC) Screen 07/03/19 07/03/19 07/03/19 17:16 18:10 19:45 WBC RBC Hgb Hct MCV MCH MCHC RDW Std Deviation RDW Coeff of [place]elia Plt Count MPV Immature Gran % (Auto) Neut % (Auto) Lymph % (Auto) [place] % (Auto) Eos % (Auto) Baso % (Auto) Immature Gran # (Auto) Neut # (Auto) Lymph # (Auto) [place] # (Auto) Eos # (Auto) Baso # (Auto) PT INR VBG pH 7.51 H VBG pCO2 33 L VBG pO2 50 VBG HCO3 26 VBG O2 Saturation 86.6 VBG Base Excess 3.1 Barometric Pressure 736.9 Sodium Potassium Chloride Carbon Dioxide Anion Gap BUN Creatinine Est Cr Clr Drug Dosing Est GFR ( Amer) Est GFR (Non-Af Amer) BUN/Creatinine Ratio Glucose POC Glucose Lactate Calcium Magnesium Total Bilirubin AST ALT Alkaline Phosphatase Total Protein Albumin Globulin Albumin/Globulin Ratio Specimen Hemolysis Urine Color Urine Appearance Urine pH 8.0 H Ur Specific [place] Urine Protein Urine Glucose (UA) Urine Ketones Urine Blood Urine Nitrite Urine Bilirubin Urine Urobilinogen Ur Leukocyte Esterase Urine WBC (Auto) Urine RBC (Auto) U Hyaline Cast (Auto) U Epithel Cells (Auto) Urine Bacteria (Auto) Ur Renal Epithelial Cell Nasal Screen MRSA (PCR) Salicylates Pending Urine Opiates Screen Ur Methadone, Qual Urine Barbiturates Ur Phencyclidine (PCP) U Amphetamin/Meth Scrn MDMA (Ecstasy) Screen U Benzodiazepines Scrn Ur Cocaine Metabolite U Marijuana (THC) Screen 07/03/19 19:45 WBC RBC Hgb Hct MCV MCH MCHC RDW Std Deviation RDW Coeff of [place]elia Plt Count MPV Immature Gran % (Auto) Neut % (Auto) Lymph % (Auto) [place] % (Auto) Eos % (Auto) Baso % (Auto) Immature Gran # (Auto) Neut # (Auto) Lymph # (Auto) [place] # (Auto) Eos # (Auto) Baso # (Auto) PT INR VBG pH 7.52 H VBG pCO2 33 L VBG pO2 50 VBG HCO3 26 VBG O2 Saturation 85.9 VBG Base Excess 3.7 Barometric Pressure 737.7 Sodium Potassium Chloride Carbon Dioxide Anion Gap BUN Creatinine Est Cr Clr Drug Dosing Est GFR ( Amer) Est GFR (Non-Af Amer) BUN/Creatinine Ratio Glucose POC Glucose Lactate Calcium Magnesium Total Bilirubin AST ALT Alkaline Phosphatase Total Protein Albumin Globulin Albumin/Globulin Ratio Specimen Hemolysis Urine Color Urine Appearance Urine pH Ur Specific [place] Urine Protein Urine Glucose (UA) Urine Ketones Urine Blood Urine Nitrite Urine Bilirubin Urine Urobilinogen Ur Leukocyte Esterase Urine WBC (Auto) Urine RBC (Auto) U Hyaline Cast (Auto) U Epithel Cells (Auto) Urine Bacteria (Auto) Ur Renal Epithelial Cell Nasal Screen MRSA (PCR) Salicylates Urine Opiates Screen Ur Methadone, Qual Urine Barbiturates Ur Phencyclidine (PCP) U Amphetamin/Meth Scrn MDMA (Ecstasy) Screen U Benzodiazepines Scrn Ur Cocaine Metabolite U Marijuana (THC) Screen
[2019-07-03 21:28] LABS: Base Excess VBG 4.3 mEq/L; Oxygen Saturation VBG 81.9 %; pH VBG 7.5 (7.36-7.41)
[2019-07-03 23:33] LABS: Base Excess VBG 4.8 mEq/L; Oxygen Saturation VBG 81.2 %; pH VBG 7.5 (7.36-7.41)
[2019-07-03 23:43] LABS: BUN Creatinine Ratio 16.7 (10-20); Calcium 7.5 mg/dl (8.5-10.1); Creatinine Clr Calc Pharmacy 79.5 ml/min; Est GFR (African American) 65.5; Est GFR (Non-African American) 56.6; Magnesium 2.3 mg/dl (1.8-2.4); Phosphorus 1.9 mg/dl (2.5-4.9)
[2019-07-04] MEDS ORDERED: POTASSIUM PHOS 3 MMOL/1 ML INFUSION IV STA (00:25)
[2019-07-04] MEDS ORDERED: POTASSIUM CHLORIDE 10 MEQ TABCR PO ONE (01:00)
[2019-07-04] MEDS ORDERED: POTASSIUM PHOSPHATE 40 MMOL in SODIUM CHLORIDE 0.9% 1000ML 1,000 ML IV ONE (01:00)
[2019-07-04 01:05] LABS: Base Excess VBG 4.7 mEq/L; Oxygen Saturation VBG 88.9 %; pH VBG 7.49 (7.36-7.41)
[2019-07-04 01:21] LABS: BUN Creatinine Ratio 15.7 (10-20); Calcium 7.4 mg/dl (8.5-10.1); Creatinine Clr Calc Pharmacy 82.5 ml/min; Est GFR (African American) 68.6; Est GFR (Non-African American) 59.2; Potassium 3.1 mmol/L (3.5-5.1)
[2019-07-04 03:39] LABS: Base Excess VBG 4.7 mEq/L; Oxygen Saturation VBG 70.1 %; pH VBG 7.44 (7.36-7.41)
--- NOTE | 2019-07-04 03:55 | Communication Note ---
Date of Service: July 04, 2019 Made aware by RN of venous pH less than 7.5 since a.m. Bicarb drip stopped by wool mixer last night as per RN. No need to resume bicarb drip as per conversation with Dr. 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
[2019-07-04 05:30] LABS: Base Excess VBG 3.2 mEq/L; Oxygen Saturation VBG 86.8 %; pH VBG 7.46 (7.36-7.41)
[2019-07-04] MEDS: LEVOTHYROXINE SODIUM 75 MCG TABLET PO SCH (05:46)
[2019-07-04 05:51] LABS: BUN Creatinine Ratio 16.6 (10-20); Calcium 7.5 mg/dl (8.5-10.1); Creatinine Clr Calc Pharmacy 87.2 ml/min; Est GFR (African American) 73.3; Est GFR (Non-African American) 63.2; Potassium 3.5 mmol/L (3.5-5.1)
[2019-07-04 07:12] LABS: Base Excess VBG 2.9 mEq/L; Oxygen Saturation VBG 84.3 %; pH VBG 7.44 (7.36-7.41)
[2019-07-04] MEDS ORDERED: POTASSIUM CHLORIDE 20 MEQ TABCR PO ONE (07:36)
--- NOTE | 2019-07-04 07:38 | Nephrology Progress Note ---
Date of Service July 04, 2019 Assessment & Plan (1) Aspirin overdose: Salicylate levels trending down >> last one <30 x 2 checks Has not had elevated lactate or anion gap at all No acidemia so far and at this point lower risk Mild SAMIR but now resolved he did have some tachypnea, none sustained since MN; does have elevated INR; no thrombocytopenia >>>cont q2-4h salicylate levels until levels consistently <40; thereafter q6-8h until <25 ->>>check q12h bmp -- d/t K mostly (see below) -w/ salicylate consistently < 30, ok to stop serial VBG -IVF ; no need to resume WILL SIGN OFF; PLS CALL IF QUESTIONS; NO OUTPATIENT ckd CLINIC F/U NEEDED; WE APPRECIATE THE OPPORTUNITY TO PARTICIPATE IN THIS PATIENT'S CARE (2) Hypokalemia: W/ improved salicylates, no indication to maintain K of 4 at this time but would monitor (3) Acute renal failure: baseline creatinine 1.1; was 1.4 on presentation and last check is 1.3. no oliguria. >> resolving -monitor bmp daily at this point (4) Abnormal chest xray: > needs 2V non urgent CXR to eval RUL area based on CXR ysterday Present on Admission?: Yes Subjective seen on rounds at 1600; had RICHARDS this am but resolved; improved GI upset; tolerating po. ASA levels down trending; wondering if we can d/c zazueta Review of Systems Review of Systems: All systems reviewed & are unremarkable except as noted in HPI & below Neurologic: no MS changes Physical Exam Constitutional: well developed and well nourished on RA, [place] Eyes: EOM intact bilaterally ENMT: Ears: no external ear abnormality Nose: no external nose abnormality Mouth: + dry oral mucous membranes Neck: no nuchal rigidity Respiratory: normal respiratory effort Auscultation: + diminished lung sounds Cardiovascular: RRR, no murmur, no edema (HS distant) Gastrointestinal (Abdomen): Inspection/Auscultation: normal bowel sounds Percussion/Palpation: abdomen soft; abdomen nontender Musculoskeletal: Extremities: strength 5/5 throughout Skin: no rashes, warm and dry Results & Data Vital Signs (Past 12 Hours) Vital Signs Temp Pulse Pulse Resp BP BP Pulse Ox 07/04/19 07:11 37.0 C 77 19 128/68 95 07/04/19 05:59 73 07/04/19 04:11 79 07/04/19 03:18 37.1 C 75 19 128/75 95 07/04/19 01:43 76 07/03/19 23:17 36.8 C 78 24 111/64 97 07/03/19 22:20 87 07/03/19 19:37 36.8 C 79 16 138/70 96 07/03/19 19:36 84 Laboratory Results 07/03/19 05:17 07/04/19 05:07 ASA < 30 on 2 checks Diagnostic Findings cxr 1. No acute cardiopulmonary findings. 2. 9 mm nodular left upper lung density. This may reflect artifact or a low suspicion rib lesion however a pulmonary nodule could appear similar. PA and shallow oblique radiographs of the chest are recommended. 3. Cardiomegaly. (1) Acute renal failure Acute renal failure type: unspecified Qualified Code(s): N17.9 - Acute kidney failure, unspecified (2) Aspirin overdose Encounter type: initial encounter Injury intent: intentional self-harm Qualified Code(s): T39.012A - Poisoning by aspirin, intentional self-harm, initial encounter
[2019-07-04 09:05] LABS: Base Excess VBG -0.2 mEq/L; Oxygen Saturation VBG 80.6 %; pH VBG 7.45 (7.36-7.41)
[2019-07-04] MEDS: SERTRALINE HCL 50 MG TABLET PO SCH (09:07)
[2019-07-04] MEDS: NICOTINE 14 MG/24 HR PATCH TD SCH (09:07)
[2019-07-04] MEDS: ENOXAPARIN INJ 40 MG/0.4 ML SYR SQ SCH (09:08)
[2019-07-04 09:32] LABS: BUN Creatinine Ratio 15.3 (10-20); Calcium 7.6 mg/dl (8.5-10.1); Creatinine Clr Calc Pharmacy 84.2 ml/min; Est GFR (African American) 70.5; Est GFR (Non-African American) 60.9; Potassium 3.5 mmol/L (3.5-5.1)
[2019-07-04 13:19] LABS: Calcium 7.8 mg/dl (8.5-10.1); Creatinine Clr Calc Pharmacy 82.3 ml/min; Est GFR (African American) 68.6; Est GFR (Non-African American) 59.2; Potassium 3.5 mmol/L (3.5-5.1)
[2019-07-04 17:34] LABS: BUN Creatinine Ratio 16.5 (10-20); Creatinine Clr Calc Pharmacy 85.6 ml/min; Est GFR (African American) 71.9; Potassium 3.8 mmol/L (3.5-5.1)
--- NOTE | 2019-07-04 17:43 | Hospitalist Progress Note ---
Date of Service July 04, 2019 Assessment & Plan (1) Suicide attempt by drug ingestion: 1) Suicide attempt by drug ingestion: (2) Aspirin overdose: (3) Overdose of metformin: per admitting service notes: This is a 58-year-old male who has significant past medical history of T2DM, HTN, HLD, hypothyroidism, depression who presents to [facility] after intentional overdose on ASA and metformin. Pt is believed to have taken 1/2 bottle of ASA (unknown if enteric coated) and approx 10 tabs of metformin Salicylate level 77 on admission Poison control contacted - recommend start bicarb gtt, repeat salicylate level at 4pm -- Neuro Urologist consulted, appreciate the recommendations Poison Control Center recommendations also noted -- Salicylate level < 30 continue to monitor BMP q4h, change to q12 when K > 4 x 2 -- Psych consulted: will need inpatient Psych treatment once medically stable Hypokalemia PO K given continue to monitor BMP q4h, change to q12 when K > 4 x 2 Acute Renal Failure given IV fluids resolved (4) Diabetes: Last A1C 5.8 in 05/2019 no prior records to review as pt recently established with [facility] -- presents with Metformin overdose -- monitor BSGs (5) HTN (hypertension): blood pressure elevated in ED - likely in setting of OD Continue atenolol monitor BP (6) HLD (hyperlipidemia): on atorvastatin (7) Hypothyroidism: continue levothyroxine TSH mildly elevated 5.47 TSH checked in outpt setting 05/2019 4.78 will need repeat as outpt in 4-6 weeks (8) Depression: continue zoloft psych consulted given intentional OD suicide precautions (9) History of TIA (transient ischemic attack): per [facility] records on ASA and statin as outpt (10) DVT prophylaxis: SCD/TEDS avoid chemical prophylaxis in setting of ASA overdose Disposition: transfer to inpatient Psych unit when medically stable Follow up: PCP Dr. Hong upon discharge Subjective ff up for aspirin overdose seen resting in bed, not in distress states he feels fine overall denies abdominal pain ,nausea no chest pain, dyspnea no bleeding no other symptoms Review of Systems Review of Systems: All systems reviewed & are unremarkable except as noted in HPI & below Physical Exam Physical Exam: General- oriented x 3, not in distress, speaks in sentences with no effort or accessory muscle use Eyes- anicteric Neck- no JVD Lungs- clear breath sounds bilaterally, no crackles, no wheezing Heart- normal rate, regular rhythm; no murmurs Abdomen- normal bowel sounds, nondistended, soft, nontender Extremities- no pretibial edema, no calf tenderness Neuro- alert, oriented x 3; no gross focal neurologic deficits Skin- warm & dry Results & Data Vital Signs (Past 12 Hours) Vital Signs Temp Pulse Pulse Resp BP Pulse Ox 07/04/19 11:11 36.9 C 74 20 124/69 96 07/04/19 07:15 80 07/04/19 07:11 37.0 C 77 19 128/68 95 07/04/19 05:59 73
--- NOTE | 2019-07-04 18:51 | XRay Report ---
XR chest PA, obliques, no lat CLINICAL HISTORY: r/o left lung nodule COMPARISON STUDY: No previous studies for comparison. FINDINGS: Moderate cardiomegaly. Prominent pulmonary vasculature. Oblique projections confirm an 8 mm nodule left upper lung. This potentially represents a hyperdense nodule versus calcified granuloma. IMPRESSION: Hyperdense nodule versus calcified granuloma left upper lung. CT of the chest is recomme nded for complete confirmation. The above report was generated using voice recognition software. It may contain grammatical, syntax or spelling errors. Electronically signed by: Maurice Herrera M.D. 07/04/2019 6:50 PM
[2019-07-04 21:43] LABS: BUN Creatinine Ratio 17.6 (10-20); Calcium 8.1 mg/dl (8.5-10.1); Creatinine Clr Calc Pharmacy 89.1 ml/min; Est GFR (African American) 75.5; Est GFR (Non-African American) 65.1; Potassium 3.7 mmol/L (3.5-5.1)
[2019-07-04] MEDS ORDERED: POTASSIUM CHLORIDE 20 MEQ TABCR PO STA (22:44)
[2019-07-04 22:53] LABS: Magnesium 2.4 mg/dl (1.8-2.4)
[2019-07-05 01:13] LABS: BUN Creatinine Ratio 17.7 (10-20); Calcium 8.1 mg/dl (8.5-10.1); Creatinine Clr Calc Pharmacy 97.1 ml/min; Est GFR (African American) 83.8; Est GFR (Non-African American) 72.3; Potassium 3.8 mmol/L (3.5-5.1)
[2019-07-05] MEDS ORDERED: POTASSIUM CHLORIDE 20 MEQ TABCR PO STA (01:47)
[2019-07-05 05:20] LABS: BUN Creatinine Ratio 16.7 (10-20); Creatinine Clr Calc Pharmacy 100.8 ml/min; Est GFR (African American) 87.6; Est GFR (Non-African American) 75.6; Potassium 4.1 mmol/L (3.5-5.1)
[2019-07-05] MEDS: LEVOTHYROXINE SODIUM 75 MCG TABLET PO SCH (06:17)
[2019-07-05] MEDS: ENOXAPARIN INJ 40 MG/0.4 ML SYR SQ SCH (07:28)
[2019-07-05] MEDS: NICOTINE 14 MG/24 HR PATCH TD SCH (07:28)
[2019-07-05] MEDS: SERTRALINE HCL 50 MG TABLET PO SCH (07:29)
[2019-07-05 09:38] LABS: BUN Creatinine Ratio 16.8 (10-20); Calcium 8.2 mg/dl (8.5-10.1); Est GFR (African American) 86.6; Est GFR (Non-African American) 74.7
--- NOTE | 2019-07-05 10:23 | CT Scan Report ---
CT OF THE CHEST WITHOUT IV CONTRAST CLINICAL HISTORY: Left lung nodule versus granuloma. COMPARISON STUDY: Chest radiographs July 03, 2019 July 04, 2019. CT DOSE: 1334.38 mGy.cm TECHNIQUE: Axial images of the chest were obtained without IV contrast. Images were reviewed in the axial, sagittal, and coronal planes. IV contrast was not administered for this examination. Automat ed exposure control was utilized for the study. A dose lowering technique was utilized adhering to t he principles of ALARA. FINDINGS: A centrally calcified 8 mm left upper lobe nodule corresponds to the finding on prior [facility] t radiograph. This represents a granuloma. Mosaic attenuation within the lungs is noted. There is no consolidation. No suspicious pulmonary nodules are present. No pneumothorax or pleural effusion is no lisa. There is moderate cardiomegaly. No pericardial effusion is noted. Prominent right infrahilar lym ph node is probably benign. No suspicious osseous lesions within the bony thorax are noted. Calcified left hilar lymph nodes are present. There is fatty infiltration of the liver. Upper abdomen is other rebollar unremarkable. IMPRESSION: 1. 8 mm centrally calcified left upper lobe nodule which represents a granuloma. This is benign. This corresponds to the finding on chest radiographs. No suspicious lung nodules. 2. Moderate cardiomegaly. 3. Fatty infiltration of the liver. Electronically signed by: Chito Delgado M.D. 07/05/2019 10:21 AM
[2019-07-05 13:05] LABS: Amphetamines+Metham, Urine Neg (Neg); Barbiturates, Urine Neg (Neg); Benzodiazepine, Urine Neg (Neg); Cocaine, Urine Neg (Neg); MDMA (Ecstacy), Urine Neg (Neg); Methadone, Urine Neg (Neg); Opiate, Urine Neg (Neg); Phencyclidine, Urine Neg (Neg)
--- NOTE | 2019-07-05 14:04 | Hospitalist Progress Note ---
Date of Service delayed entry date of service noted below July 05, 2019 Assessment & Plan (1) Suicide attempt by drug ingestion: 1) Suicide attempt by drug ingestion: (2) Aspirin overdose: (3) Overdose of metformin: per admitting service notes: This is a 58-year-old male who has significant past medical history of T2DM, HTN, HLD, hypothyroidism, depression who presents to [facility] after intentional overdose on ASA and metformin. Pt is believed to have taken 1/2 bottle of ASA (unknown if enteric coated) and approx 10 tabs of metformin Salicylate level 77 on admission Poison control contacted - recommend start bicarb gtt, repeat salicylate level at 4pm -- Cleaning Porter consulted, appreciate the recommendations Poison Control Center recommendations also noted -- Salicylate level < 30 continue to monitor BMP and keep K >4 -- Psych consulted: will need inpatient Psych treatment once medically stable Hypokalemia PO K given continue to monitor BMP q4h, maintain K> 4 Acute Renal Failure given IV fluids resolved (4) Diabetes: Last A1C 5.8 in 05/2019 no prior records to review as pt recently established with [facility] -- presents with Metformin overdose -- monitor BSGs (5) HTN (hypertension): blood pressure elevated in ED - likely in setting of OD Continue atenolol monitor BP (6) HLD (hyperlipidemia): on atorvastatin (7) Hypothyroidism: continue levothyroxine TSH mildly elevated 5.47 TSH checked in outpt setting 05/2019 4.78 will need repeat as outpt in 4-6 weeks (8) Depression: continue zoloft psych consulted given intentional OD suicide precautions (9) History of TIA (transient ischemic attack): per [facility] records on ASA and statin as outpt (10) DVT prophylaxis: SCD/TEDS avoid chemical prophylaxis in setting of ASA overdose Disposition: transfer to inpatient Psych unit when medically stable Follow up: PCP Dr. Hong upon discharge Subjective ff up for aspirin overdose seen sitting up in bed, comfortable states he feels fine overall denies abdominal pain, nausea, problems with urination or BM no chest pain, dyspnea, palpitations states mood is fine no other symptoms Review of Systems Review of Systems: All systems reviewed & are unremarkable except as noted in HPI & below Physical Exam Physical Exam: General- oriented x 3, not in distress, speaks in sentences with no effort or accessory muscle use Eyes- anicteric Neck- no JVD Lungs- clear breath sounds , no rales/wheezing bilaterally Heart- normal rate, regular rhythm; no murmurs Abdomen- normal bowel sounds, nondistended, soft, nontender Extremities- no pretibial edema, no calf tenderness Neuro- alert, oriented x 3; no gross focal neurologic deficits Skin- warm & dry psych- calm, coopertive, appropriate affect Results & Data Vital Signs (Past 12 Hours) Vital Signs Temp Pulse Resp BP Pulse Ox 07/05/19 11:04 37.4 C 67 18 134/78 95 07/05/19 07:10 36.9 C 82 18 148/84 H 95 07/05/19 03:14 37.1 C 71 19 129/71 96
--- NOTE | 2019-07-05 14:13 | Hospitalist Progress Note ---
Date of Service July 05, 2019 Assessment & Plan (1) Suicide attempt by drug ingestion: Suicide attempt by drug ingestion: Aspirin overdose: Overdose of metformin: Depression per admitting service notes: This is a 58-year-old male who has significant past medical history of T2DM, HTN, HLD, hypothyroidism, depression who presents to [facility] after intentional overdose on ASA and metformin. Pt is believed to have taken 1/2 bottle of ASA (unknown if enteric coated) and approx 10 tabs of metformin Salicylate level 77 on admission Poison control contacted - recommend start bicarb gtt, repeat salicylate level at 4pm -- admitted to ICU Winding Inspector And Tester consulted patient placed on Bicarbonate drip BMP and VBG closely monitored -- Salicylate level trended down last one <30 x 2 checks NO elevated lactate or anion gap at all NO acidemia -- Psych consulted: will need inpatient Psych treatment once medically stable patient cleared for transfer to Psych Facility for continuation of Psych care discussed with Psych Liaison continue Zoloft Hypokalemia replaced, resolved Acute Renal Failure given IV fluids resolved Diabetes: Last A1C 5.8 in 05/2019 no prior records to review as pt recently established with [facility] -- presents with Metformin overdose -- BSGS on the low side hold off on DM medications at this time ff up with PCP upon discharge from Psych Facility to discuss DM Medications HTN (hypertension): blood pressure elevated in ED - likely in setting of OD Continue atenolol BP stable now HLD (hyperlipidemia): on atorvastatin Hypothyroidism: continue levothyroxine TSH mildly elevated 5.47 TSH checked in outpt setting 05/2019 4.78 will need repeat as outpt in 4-6 weeks Depression: continue zoloft psych consulted transfer to inpatient Psych facility History of TIA (transient ischemic attack): per the medical center records on ASA and statin as outpt -- ASA on hold in light of overdose ff up with PCP Abnormal Ct Chest FINDINGS: A centrally calcified 8 mm left upper lobe nodule corresponds to the finding on prior chest radiograph. This represents a granuloma. Mosaic attenuation within the lungs is noted. There is no consolidation. No suspicious pulmonary nodules are present. No pneumothorax or pleural effusion is noted. There is moderate cardiomegaly. No pericardial effusion is noted. Prominent right infrahilar lymph node is probably benign. No suspicious osseous lesions within the bony thorax are noted. Calcified left hilar lymph nodes are present. There is fatty infiltration of the liver. Upper abdomen is otherwise unremarkable. IMPRESSION: 1. 8 mm centrally calcified left upper lobe nodule which represents a granuloma. This is benign. This corresponds to the finding on chest radiographs. No suspicious lung nodules. 2. Moderate cardiomegaly. 3. Fatty infiltration of the liver. -- ff up as outpatient Disposition: transfer to inpatient Psych unit when medically stable Follow up: PCP Dr. Hong upon discharge from Psych Facility plan of care discussed with patient in detail he is agreeable, understanding, comfortable with the plan of care Subjective ff up for aspirin overdose seen resting in bed, comfortable alert, oriented x 3, pleasant states he feels fine overall no abdominal pain, nausea no problems voiding no other new complaints explained that he needs to continue inpatient Psych Care- discussed in detail with patient he is agreeable after our discussion awaiting Psych Service to evaluate patient Review of Systems Review of Systems: All systems reviewed & are unremarkable except as noted in HPI & below Physical Exam Physical Exam: General- oriented x 3, not in distress, speaks in sentences with no effort or accessory muscle use Eyes- anicteric Neck- no JVD Lungs- clear breath sounds no crackles no wheezing b/l Heart- normal rate, regular rhythm; no murmurs Abdomen- normal bowel sounds, nondistended, soft, nontender Extremities- no pretibial edema, no calf tenderness Neuro- alert, oriented x 3; no gross focal neurologic deficits Skin- warm & dry Results & Data Vital Signs (Past 12 Hours) Vital Signs Temp Pulse Resp BP Pulse Ox 07/05/19 11:04 37.4 C 67 18 134/78 95 07/05/19 07:10 36.9 C 82 18 148/84 H 95 07/05/19 03:14 37.1 C 71 19 129/71 96 Laboratory Results Laboratory Results - last 24 hr 07/04/19 07/04/19 07/04/19 16:34 17:10 20:32 Sodium 141 Potassium 3.8 Chloride 113 H Carbon Dioxide 24 Anion Gap 4.0 BUN 21 H Creatinine 1.26 Est Cr Clr Drug Dosing 85.6 Est GFR ( Amer) 71.9 Est GFR (Non-Af Amer) 62.0 BUN/Creatinine Ratio 16.5 Glucose 91 POC Glucose 100 H 110 H Calcium 8.0 L Magnesium Urine Opiates Screen Ur Methadone, Qual Urine Barbiturates Ur Phencyclidine (PCP) U Amphetamin/Meth Scrn MDMA (Ecstasy) Screen U Benzodiazepines Scrn Ur Cocaine Metabolite U Marijuana (THC) Screen 07/04/19 07/05/19 07/05/19 21:10 00:49 04:51 Sodium 141 142 142 Potassium 3.7 3.8 4.1 Chloride 112 H 113 H 113 H Carbon Dioxide 26 27 26 Anion Gap 3.0 2.0 L 3.0 BUN 21 H 20 H 18 Creatinine 1.21 1.11 1.07 Est Cr Clr Drug Dosing 89.1 97.1 100.8 Est GFR ( Amer) 75.5 83.8 87.6 Est GFR (Non-Af Amer) 65.1 72.3 75.6 BUN/Creatinine Ratio 17.6 17.7 16.7 Glucose 93 87 90 POC Glucose Calcium 8.1 L 8.1 L 8.0 L Magnesium 2.4 Urine Opiates Screen Ur Methadone, Qual Urine Barbiturates Ur Phencyclidine (PCP) U Amphetamin/Meth Scrn MDMA (Ecstasy) Screen U Benzodiazepines Scrn Ur Cocaine Metabolite U Marijuana (THC) Screen 07/05/19 07/05/19 07/05/19 07:29 08:47 11:09 Sodium 141 Potassium 4.0 Chloride 113 H Carbon Dioxide 27 Anion Gap 1.0 L BUN 18 Creatinine 1.08 Est Cr Clr Drug Dosing 100.0 Est GFR ( Amer) 86.6 Est GFR (Non-Af Amer) 74.7 BUN/Creatinine Ratio 16.8 Glucose 159 H POC Glucose 94 66 L* Calcium 8.2 L Magnesium Urine Opiates Screen Ur Methadone, Qual Urine Barbiturates Ur Phencyclidine (PCP) U Amphetamin/Meth Scrn MDMA (Ecstasy) Screen U Benzodiazepines Scrn Ur Cocaine Metabolite U Marijuana (THC) Screen 07/05/19 07/05/19 07/05/19 11:10 11:27 12:40 Sodium Potassium Chloride Carbon Dioxide Anion Gap BUN Creatinine Est Cr Clr Drug Dosing Est GFR ( Amer) Est GFR (Non-Af Amer) BUN/Creatinine Ratio Glucose POC Glucose 68 L* 74 Calcium Magnesium Urine Opiates Screen Neg Ur Methadone, Qual Neg Urine Barbiturates Neg Ur Phencyclidine (PCP) Neg U Amphetamin/Meth Scrn Neg MDMA (Ecstasy) Screen Neg U Benzodiazepines Scrn Neg Ur Cocaine Metabolite Neg U Marijuana (THC) Screen Neg
--- NOTE | 2019-07-05 14:49 | Discharge Summary ---
Date of Service July 05, 2019 Admission HPI Per Admitting Provider Sarah Alvarez is a 58-year-old male admitted medically on 07/02/19 after intentionally consuming 10 tablets of 500mg metformin and ~50 tablets of aspirin in an attempt to end his life. It was reported the patient took the overdose after he had an argument with his . Psychiatric consultation is requested to evaluate patient after his suicide attempt. Patient's case was reviewed and discussed with psychiatric nurse liaison and psychiatrist. Pt is cooperative with assessment and states, "I'm a lot better now than I was yesterday." Pt admits that the intent behind his overdose was "I tried to take my own life." Pt states that he and his had been arguing, when she asked for a divorce. Pt became upset and impulsively took the medication. He states, "she told me God told her to do it." Pt states he is not suicidal at this time, verbalizing "[suicide] is not worth it, it's not worth putting yourself through all this. I should have talked to someone instead." Pt continues to verbalize "this ain't me, this was never me." Despite the impulsivity of his suicide attempt, the patient states that he had been experiencing suicidal ideation for 4 months. He reports "I've thought about it for a while, I just didn't say it. People would ask and I'd tell them no." Pt states his current psychiatric diagnoses are "I've got anxiety. Anxiety, and depression, and something else. Oh, yeah, I'm bipolar." Pt states that when he is experiencing anxiety, he generally notices increased irritability and frequent headaches. He denies panic attacks. Pt states that when his mood is low, he tends to isolate. His appetite is reduced and he has difficulty falling and staying asleep. He reports increased daytime sleeping in order to "escape." Pt is prescribed sertraline 50mg by his PCP. He states he had utilized the medication in the past but had discontinued it. He restarted the medication when he returned to the area in 01/2019. He does not feel the medication has been overly helpful in managing his anxiety and depression. He denies significant psychiatric history to this provider, denying inpatient psychiatric admissions. He informed our liaison that he had been hospitalized psychiatrically "in my 30's." Pt denies SI, HI, SIB, A/V hallucinations, paranoia, mitchell/hypomania, other symptoms more suggestive of a bipolar presentation, OCD, PTSD, eating disorder, and other specific psychiatric symptoms. Admission Exam Per Admitting Provider Constitutional: WD/WN, morbidly obese male, vey hard of hearing, diaphoretic, unkempt hygeine, vitals as above, NAD, sitting up in bed, pleasant, conversing easily Head: Normocephalic, Atraumatic Eyes: PERRL, conjunctivae normal, anicteric sclerae ENMT: external ear and nose normal, oropharynx with dry mucous membranes Neck: trachea midline, no thyromegaly normal visual inspection Respiratory: +tachypnea, lungs clear to auscultation, no wheeze, rales, rhonchi. Normal insp/exp effort, no accessory muscle use Cardiovascular: RRR, no murmur, no edema Vessels: no JVD or carotid bruit Chest: normal inspection of chest Abdomen: distended due to obesity, normal bowel sounds, soft, nontender, no hepatosplenomegaly Musculoskeletal: no cyanosis or clubbing, extremities motor strength 5/5 Skin: no rashes, warm and dry normal turgor, b/l pretibial surfaces with numerous abrasions, scratches but does not appear to be infected Neurologic: PERRL, EOMI, accommodation nl, no face palsy, no dysarthria CN's II-XI intact bilaterally and moves all extremities Psychiatric: A+Ox3, euthymic affect Lymphatic: no cervical or axillary lymphadenopathy : deferred Principal Diagnosis ASPIRIN, METFORMIN OVERDOSE Discharge Exam General- oriented x 3, not in distress, speaks in sentences with no effort or accessory muscle use Eyes- anicteric Neck- no JVD Lungs- clear breath sounds no crackles no wheezing b/l Heart- normal rate, regular rhythm; no murmurs Abdomen- normal bowel sounds, nondistended, soft, nontender Extremities- no pretibial edema, no calf tenderness Neuro- alert, oriented x 3; no gross focal neurologic deficits Skin- warm & dry Discharge Data Allergies Allergy/AdvReac Type Severity Reaction Status Date / Time No Known Allergies Allergy Unverified 06/23/19 18:12 Consultations 07/02/19 15:19 ED Decision to Admit Stat 07/02/19 17:17 Consult Case Management - Discharge Planning Routine Consult Psychiatry Routine 07/02/19 20:19 Consult Dukey Rider Routine 07/02/19 22:12 Consult Case Management - Discharge Planning Routine 07/03/19 15:27 Consult Nephrology Routine Ordered Studies 07/05/19 08:58 CT chest wo con Routine FINDINGS: A centrally calcified 8 mm left upper lobe nodule corresponds to the finding on prior chest radiograph. This represents a granuloma. Mosaic attenuation within the lungs is noted. There is no consolidation. No suspicious pulmonary nodules are present. No pneumothorax or pleural effusion is noted. There is moderate cardiomegaly. No pericardial effusion is noted. Prominent right infrahilar lymph node is probably benign. No suspicious osseous lesions within the bony thorax are noted. Calcified left hilar lymph nodes are present. There is fatty infiltration of the liver. Upper abdomen is otherwise unremarkable. IMPRESSION: 1. 8 mm centrally calcified left upper lobe nodule which represents a granuloma. This is benign. This corresponds to the finding on chest radiographs. No suspicious lung nodules. 2. Moderate cardiomegaly. 3. Fatty infiltration of the liver. Hospital Course (1) Suicide attempt by drug ingestion: Suicide attempt by drug ingestion: Aspirin overdose: Overdose of metformin: Depression per admitting service notes: This is a 58-year-old male who has significant past medical history of T2DM, HTN, HLD, hypothyroidism, depression who presents to [facility] after intentional overdose on ASA and metformin. Pt is believed to have taken 1/2 bottle of ASA (unknown if enteric coated) and approx 10 tabs of metformin Salicylate level 77 on admission Poison control contacted - recommend start bicarb gtt, repeat salicylate level at 4pm -- admitted to ICU Rate Clerk consulted patient placed on Bicarbonate drip BMP and VBG closely monitored -- Salicylate level trended down last one <30 x 2 checks NO elevated lactate or anion gap at all NO acidemia -- Psych consulted: will need inpatient Psych treatment once medically stable patient cleared for transfer to Psych Facility for continuation of Psych care discussed with Psych Liaison continue Zoloft Hypokalemia replaced, resolved Acute Renal Failure given IV fluids resolved Diabetes: Last A1C 5.8 in 05/2019 no prior records to review as pt recently established with [facility] -- presents with Metformin overdose -- BSGS on the low side- at one point 60s but asymptomatic hold off on DM medications at this time ff up with PCP upon discharge from Psych Facility to discuss DM Medications HTN (hypertension): blood pressure elevated in ED - likely in setting of OD Continue atenolol BP stable now HLD (hyperlipidemia): on atorvastatin Hypothyroidism: continue levothyroxine TSH mildly elevated 5.47 TSH checked in outpt setting 05/2019 4.78 will need repeat as outpt in 4-6 weeks Depression: continue zoloft psych consulted transfer to inpatient Psych facility History of TIA (transient ischemic attack): per [facility] records on ASA and statin as outpt -- ASA on hold in light of overdose ff up with PCP Abnormal Ct Chest FINDINGS: A centrally calcified 8 mm left upper lobe nodule corresponds to the finding on prior chest radiograph. This represents a granuloma. Mosaic attenuation within the lungs is noted. There is no consolidation. No suspicious pulmonary nodules are present. No pneumothorax or pleural effusion is noted. There is moderate cardiomegaly. No pericardial effusion is noted. Prominent right infrahilar lymph node is probably benign. No suspicious osseous lesions within the bony thorax are noted. Calcified left hilar lymph nodes are present. There is fatty infiltration of the liver. Upper abdomen is otherwise unremarkable. IMPRESSION: 1. 8 mm centrally calcified left upper lobe nodule which represents a granuloma. This is benign. This corresponds to the finding on chest radiographs. No bouchra picious lung nodules. 2. Moderate cardiomegaly. 3. Fatty infiltration of the liver. -- ff up as outpatient Disposition: transfer to inpatient Psych unit when medically stable Follow up: PCP Dr. Hong upon discharge from Psych Facility plan of care discussed with patient in detail he is agreeable, understanding, comfortable with the plan of care Total Time Total Time Spent Total Time Spent (In Minutes): 55 minutes Discharge Plan Discharge Items Patient Disposition: Transfer Behavioral Health Fac Reason For Visit: ASA OVERDOSE Discharge Diagnosis: ASPIRIN, METFORMIN OVERDOSE, SUICIDAL ATTEMPT Activity: Resume your previous activity Non-emergency contact: Primary Care Provider Call non-emergency contact if: you have any medication questions, your symptoms worsen and your pain is not controlled Follow-up/Referrals: Radha Villanueva MD [Primary Care Provider] - Diet: Carb Consistent or DM2 and Heart Healthy Addtl Attending Provider Instructions: PLEASE REFER TO ACCOMPANYING HOSPITAL DISCHARGE SUMMARY FOR FURTHER DETAILS. Pending Studies at Discharge: No Stand-Alone Forms: Detectent, Suicide Prevention Resources Medications and DC Order Prescriptions: New nicotine 7 mg/24 hr Patch 24 Hour 14 mg transdermal QAM 14 Days Qty: 14 RF: 0 levothyroxine [Synthroid] 75 mcg Tablet 75 mcg PO DAILYBB 30 Days Qty: 30 RF: 0 Continued atorvastatin 40 mg Tablet 40 mg PO HS RF: 0 atenolol 25 mg Tablet 25 mg PO DAILY RF: 0 sertraline 50 mg Tablet 50 mg PO DAILY RF: 0 Discontinued aspirin 81 mg Tablet,Delayed Release (Dr/Ec) 81 mg PO DAILY RF: 0 levothyroxine 150 mcg Tablet 150 mcg PO DAILY RF: 0 metformin 500 mg Tablet Extended Release 24 Hr 500 mg PO BIDM RF: 0 Discharge Orders: Discharge Order (Routine); Ordered 07/05/19 Ordered By: James Vasquez Admission Data Admit Date/Time: 07/02/19 15:54 Attending Provider: James Vasquez Admit Provider: Naya Zamora Primary Care Provider: Radha Villanueva Other Providers: Naya Zamora ; Kalani Bolton Vyacheslav ; Faby Cotton
[2019-07-07 06:16] LABS: Estimated Average Glucose 123 mg/dl; Hemoglobin A1C 5.9 % (4.5-5.6)
== END 2019-07-05 19:22 | DRG 918 ==
LOC: ED 13:28 → SUATTDRO 15:54 → 2S 15:54 → 1E 20:20 → 2S 07-03 19:09